=== PATIENT | male | born 1970 | race Caucasian/White ===

== ENCOUNTER 2021-12-05 18:29 | Emergency (ER) | payer BC, SELFPAY ==
[2021-12-05 18:24] VITALS: BP 155/92; PULSE 106; RESP 20; TEMP 36.7; O2SAT 97
--- NOTE | 2021-12-05 18:53 | PC.NURSE ---
ED MD AT BEDSIDE FOR EVALUATION
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
--- NOTE | 2021-12-05 19:00 | PC.NURSE ---
RADIOLOGY NOTIFIED OF CT ORDER
--- NOTE | 2021-12-05 19:04 | PC.NURSE ---
Pt gone to RAD
--- NOTE | 2021-12-05 19:06 | PC.NURSE ---
[address]
--- NOTE | 2021-12-05 19:15 | PC.NURSE ---
Pt back from RAD
[2021-12-05 19:59] LABS: Basophils # 0.1 K/mm3 (0-0.2); Basophils % 0.7 % (0.1-2.0); Eosinophils # 0.2 K/mm3 (0.0-0.4); Eosinophils % 1.3 % (0.1-12.0); Hematocrit 41.2 % (42.0-52.0); Hemoglobin 13.6 g/dL (14.1-18.0); Lymphocytes # 0.7 K/mm3 (0.7-4.5); Lymphocytes % 4.8 % (10-50); Mean Corpuscular Hemoglobin 31.2 pg (27.0-31.2); Mean Corpuscular Volume 94.4 fl (80-94); Mean Platelet Volume 7.6 fl (7.4-10.4); Monocytes # 0.2 K/mm3 (0.1-1.0); Neutrophils # 13.8 K/mm3 (1.8-7.8); Neutrophils % 92.3 % (37.0-80.0); Platelet Count 368 K/mm3 (142-424); Red Blood Count 4.37 M/mm3 (4.60-6.20); Red Cell Distribution Width 12.9 % (11.5-17.5); White Blood Count 14.9 K/mm3 (4.8-10.8)
[2021-12-05 20:01] LABS: MANUAL DIFFERENTIAL MANUAL DIFFERENTIAL (MANUAL DIFF)
[2021-12-05 20:15] LABS: Alanine Aminotransferase 52 U/L (12-78); Albumin Level 4.3 g/dl (3.5-5.0); Albumin/Globulin Ratio 0.9 (1.1-1.8); Alkaline Phosphatase 95 U/L (38-126); Anion Gap 12.8 mEq/L (5-15); Aspartate Amino Transferase 52 U/L (17-59); Bilirubin,Total 0.7 mg/dl (0.2-1.3); Blood Urea Nitrogen 11 mg/dl (9-20); Calcium 9.3 mg/dl (8.4-10.2); Carbon Dioxide 30 mmol/L (22.0-30.0); Chloride 102 mmol/L (98-107); Creatinine Clearance Estimated 17 mL/min (50-200); Estimated Glomerular Filt Rate 176 ml/min (>60); GFR (African American) 213 ML/MIN (>60); Globulin 4.7 g/dL (1.3-3.2); Glucose 128 mg/dl (74-100); Potassium 3.8 mmoL/L (3.5-5.1); Sodium 141 mmol/L (136-145)
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
[2021-12-05 20:49] LABS: Eosinophils % 1 % (0-3); Lymphocytes % 4 % (10-50); Monocytes % 1 % (2-9); Neutrophils % 93 % (42-76); Platelet Estimate Normal; RBC Morphology Normal; Total Cells Counted 100
[2021-12-05 20:54] VITALS: BP 147/71; PULSE 91; RESP 20; TEMP 36.7; O2SAT 97
== END 2021-12-05 20:55 | disposition home or self-care (01) ==
PROVIDERS: Emergency Provider Emergency Medicine; PCP Emergency Medicine
DX: S12.090S Other displaced fracture of first cervical vertebra, sequela (principal); S12.120 Other displaced dens fracture; Y00.XXXS Assault by blunt object, sequela
CPT/HCPCS: 70450; 72125; 80053; 85007; 85025; 96374; 99284

== ENCOUNTER 2022-09-05 00:48 | Emergency (ER) | payer BC, SELFPAY ==
[2022-09-05 01:00] VITALS: BP 117/85; PULSE 66; RESP 18; TEMP 36.6; O2SAT 100; BMI 25.1
[2022-09-05 01:01] VITALS: BP 130/92; PULSE 86; RESP 18; O2SAT 92
--- NOTE | 2022-09-05 01:05 | CT_ITS ---
PROCEDURE INFORMATION: Exam: CT Cervical Spine Without Contrast Exam date and time: 09/05/2022 1:19 AM Age: 52 years old Clinical indication: Neck pain TECHNIQUE: Imaging protocol: Computed tomography of the cervical spine without contrast. Radiation optimization: All CT scans at this facility use at least one of these dose optimization techniques: automated exposure control; mA and/or kV adjustment per patient size (includes targeted exams where dose is matched to clinical indication); or iterative reconstruction. REPORTING DATA: Count of CT and Cardiac NM exams in prior 12 months: This patient has received 2 known CTs and 0 known cardiac nuclear medicine studies in the 12 months prior to the current study. COMPARISON: CT CERVICAL SPINE WO CON 12/05/2021 7:06 PM FINDINGS: Bones/joints: There is an old ununited odontoid fracture. There is mild anterior subluxation of C1 and the odontoid fragment with respect to the remainder of C2. Significant misregistration artifact is noted at the C3 level. Acute fracture at this level can not be excluded based on this exam. Lungs: There are prominent subpleural bullous changes at the lung apices. Soft tissues: Unremarkable. Other findings: The study is degraded by motion artifact. IMPRESSION: 1. The study is significantly degraded by motion artifact. Significant misregistration artifact is noted at C3. A fracture at this level can not be excluded. 2. No definite acute fracture is evident. 3. There is straightening of the spine secondary to positioning or muscle spasm. 4. Old ununited odontoid fracture. There is mild anterior subluxation of C1 and the odontoid fragment with respect to C2. 5. Repeat imaging is recommended if there remains clinical concern for a cervical spine fracture.
--- NOTE | 2022-09-05 01:05 | XR_ITS ---
PROCEDURE INFORMATION: Exam: XR Chest Exam date and time: 09/05/2022 1:12 AM Age: 52 years old Clinical indication: Pain; Other: Neck; Additional info: Neck pain TECHNIQUE: Imaging protocol: Radiologic exam of the chest. Views: 1 view. COMPARISON: CT CERVICAL SPINE WO CON 12/05/2021 7:06 PM FINDINGS: Lungs: Unremarkable. No consolidation. Pleural spaces: Unremarkable. No pleural effusion. No pneumothorax. Heart/Mediastinum: Calcified right paratracheal lymph node is noted. Vasculature: Unremarkable. Bones/joints: Irregularity of the mid right clavicle suggests old healed fracture. IMPRESSION: No acute findings.
[2022-09-05 01:30] VITALS: BP 112/74; PULSE 90; RESP 20; O2SAT 95
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
[2022-09-05 04:15] VITALS: BP 112/74; PULSE 89; RESP 16; TEMP 36.6; O2SAT 98
== END 2022-09-05 04:24 | disposition home or self-care (01) ==
PROVIDERS: Emergency Provider Emergency Medicine
DX: T40.2X1A Poisoning by other opioids, accidental (unintentional), initial encounter (principal); L03.116 Cellulitis of left lower limb; F17.210 Nicotine dependence, cigarettes, uncomplicated
CPT/HCPCS: 71045; 72125; 96374; 99284

== ENCOUNTER 2024-07-04 17:14 | Emergency (ER) | payer MEDICAID, SELFPAY ==
[2024-07-04] VITALS (9 sets, daily range): BP systolic 118–127; BP diastolic 78–85; PULSE 70–81; RESP 16; TEMP 36.5–36.6; O2SAT 94–100; BMI 20.3
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
--- NOTE | 2024-07-04 18:06 | PC.NURSE ---
rounded on pt, no needs at this time.
[2024-07-04] MEDS: ACETAMINOPHEN 500MG TAB 1000 MG PO (18:44)
--- NOTE | 2024-07-04 18:56 | PC.NURSE ---
gave pt a sandwich for po challenge.
== END 2024-07-04 19:09 | disposition home or self-care (01) ==
PROVIDERS: Emergency Provider Emergency Medicine
DX: M25.531 Pain in right wrist (principal); M54.2 Cervicalgia; M54.9 Dorsalgia, unspecified; F17.210 Nicotine dependence, cigarettes, uncomplicated; V19.3XXA Pedal cyclist (driver) (passenger) injured in unspecified nontraffic accident, initial encounter; Y93.89 Activity, other specified; Y92.9 Unspecified place or not applicable
CPT/HCPCS: 70450; 72125; 73110; 73130; 99284

== ENCOUNTER 2024-08-31 12:11 | Emergency (ER) | payer MEDICAID, SELFPAY ==
[2024-08-31] VITALS (16 sets, daily range): BP systolic 92–112; BP diastolic 50–85; PULSE 73–89; RESP 12–17; TEMP 36.5–36.7; O2SAT 93–100; BMI 26.6
--- NOTE | 2024-08-31 12:13 | ECG_ITS ---
APPROVED REPORT Exam: Resting ECG HR:91 bpm ECG Measurements Heart Rate 91 AXES NH 139 P 76 QRSd 91 QRS 86 QT 346 T 62 QTc 395 Conclusion Sinus rhythm Nondiagnostic baseline Electronically signed by : CHRISTIANO SANCHEZ, 09/03/2024 19:36:30
--- NOTE | 2024-08-31 12:26 | XR_ITS ---
FINAL REPORT CLINICAL HISTORY: overddose eval for aspiration COMPARISON: 09/05/2022 FINDINGS: The heart size is normal. The mediastinum is normal. There is no focal infiltrate or edema. Mild chronic changes are noted at both lung bases. There are no pleural effusions. There is no pneumothorax. There is no osseous abnormality. IMPRESSION: Chronic changes without acute cardiopulmonary process Reviewed, Interpreted and Dictated by Trung Fish MD Transcribed by Felisa Bradford Authenticated and [facility]
[2024-08-31 12:35] LABS: Basophils # 0.1 K/mm3 (0-0.2); Basophils % 1.1 % (0.1-2.0); Eosinophils # 0.4 Kmm3 (0.0-0.4); Eosinophils % 6.3 % (0.1-12.0); Hematocrit 40.4 % (42.0-52.0); Hemoglobin 14.4 g/dL (14.1-18.0); Immature Granulocytes # 0.02 10^3uL; Immature Granulocytes % 0.3 %; Lymphocytes % 46.6 % (10-50); Mean Corpuscular HGB Conc 35.6 g/dL (31.8-35.4); Mean Corpuscular Hemoglobin 33.1 pg (27.0-31.2); Mean Corpuscular Volume 92.9 fl (80-94); Mean Platelet Volume 9.5 fl (7.4-10.4); Monocytes # 0.6 K/mm3 (0.1-1.0); Monocytes % 9.4 % (1.7-9.3); Neutrophils # 2.3 K/mm3 (1.8-7.8); Neutrophils % 36.3 % (37.0-80.0); Nucleated Red Blood Cells # 0 10^3/uL; Nucleated Red Blood Cells % 0 %; Platelet Count 295 K/mm3 (142-424); Red Blood Count 4.35 M/mm3 (4.60-6.20); Red Cell Distribution Width-SD 41.4 fL; White Blood Count 6.4 K/mm3 (4.8-10.8)
[2024-08-31 12:39] LABS: VBG HCO3 26.1 mmol/L (23-30); VBG Oxygen Saturation 99.2 % (50-70); VBG PH 7.26 mmol/L (7.31-7.41); VBG PO2 177.1 mmol/L (28-40); VBG Total CO2 27.9 mmol/L (23-27)
[2024-08-31 12:39] LABS: Albumin Level 4.1 g/dl (3.5-5.0); Chloride 104 mmol/L (98-107)
[2024-08-31 12:40] LABS: Potassium 4.5 mmoL/L (3.5-5.1); Sodium 138 mmol/L (136-145)
[2024-08-31 12:40] LABS: Lactate Venous 2.6 mmol/L (0.4-2.0)
[2024-08-31 12:42] LABS: Alanine Aminotransferase 48 U/L (12-78); Albumin/Globulin Ratio 1.2 (1.1-1.8); Alkaline Phosphatase 69 U/L (38-126); Anion Gap 10.5 mEq/L (5-15); Aspartate Amino Transferase 56 U/L (17-59); Bilirubin,Total 0.3 mg/dl (0.2-1.3); Blood Urea Nitrogen 17 mg/dl (9-20); Carbon Dioxide 28 mmol/L (22.0-30.0); Creatine Kinase 44 U/L (55-170); Creatinine Clearance Estimated 116 mL/min (50-200); Estimated Glomerular Filt Rate 101 ml/min (>60); GFR (African American) 122 ML/MIN (>60); Globulin 3.5 g/dL (1.3-3.2); Total Protein,Serum 7.6 g/dl (6.3-8.2)
[2024-08-31 12:43] LABS: Calcium 8.8 mg/dl (8.4-10.2); Glucose 197 mg/dl (74-100); Magnesium 1.6 mg/dl (1.6-2.3)
[2024-08-31] MEDS: 0.9 % SODIUM CHLORIDE 1000ML 1,000 ML 999 ML IV (12:43)
[2024-08-31 12:44] LABS: Activated Partial Thrombo Time 27.4 seconds (22.8-30.6)
--- NOTE | 2024-08-31 12:45 | ED_ITS ---
Discharge Plan Disposition Patient Disposition: Home, Self-Care Prescriptions Prescriptions: New naloxone 4 mg/actuation spray,non-aerosol 4 mg intranasal Q2M PRN (Reason: opioid overdose) Qty: 2 2RF Rx Instructions: spray 1 dose into ONE nostril; alternate nostrils w each dose until help arrives No Action tramadol 50 mg tablet 50 mg PO BID Qty: 60 1RF aripiprazole [Abilify] 2 mg tablet 2 mg PO DAILY Qty: 30 1RF Referrals Follow up/Referrals: Provider,Referral, [Primary Care Provider] - See instructions Activity Restrictions/Add. Instructions Additional Instructions/Restrictions: Call your family doctor to establish care for this visit to the emergency department and schedule follow-up within 48 hours to ensure improvement. If you have any worsening of your condition or any other concerning signs or symptoms, return to the emergency department or your primary care doctor for further evaluation. Discontinue using narcotic medications. library specialist can help through quitting. Clinical Impressions Clinical Impression: Opiate overdose, Fentanyl use disorder, severe, Opiate abuse, continuous, Situational depression Stand Alone Forms Stand Alone Forms: Work/School Release Instructions Patient Instructions: DI for Drug Overdose in Adults, Subjective Opioid Withdrawal Scale (SOWS) Print Language Print Language: Malay Discharge ED Provider: Toshia Hu General Adult HPI <Prasanth Baptiste MD - Last Filed: 08/31/24 14:52> General Chief complaint: Overdose Stated complaint: Possible Overdose Time Seen by Provider: 08/31/24 12:13 Mode of Arrival: EMS Source of Information: Patient and EMS Description of Symptoms (Recalled from ER Triage Doc. by RN): Pt transported to ED by EMS after being found in someone's yard unconscious. On EMS's arrival to scene the pt was given 4mg Narcan Intranasal and pt responded to medication. EMS found multiple syringes in the pts pocket. Pt told EMS that he did Fentanyl. Enroute to Hospital EMS started 0.9% Sodium Chloride IV. Vitals signs prior to arrival given by EMS was BP 105/74, glucose 207, and was placed on 4L. Pt reports he has chronic neck pain and has broken his 1st and 2nd vertebrae. Pt responded to name, place, month, and president. Pt reports that he injected Fentanyl and denies any other substance abuse. History of Present Illness HPI narrative: Please note that above description of symptoms, in this electronic medical record under categorization of recalled from ER triage doctor by RN are reflective of an initial nursing assessment, however, is not reflective of my full history and physical exam that was personally taken and clarified. Consequentially, this preceding description of symptoms, which may include the patient's categorized chief complaint in the EMR, do not reflect my personal clinical impression, and the ultimate description of history of present illness and patient stated complaints should be deferred to this section of the note. Unless stated otherwise or congruent with this section of the note, additional signs, symptoms, or incongruence should be interpreted as inaccurate with my clinical impression. Related Data Previous Rx's ?Medication ?Instructions ?Recorded aripiprazole 2 mg tablet (Abilify) 2 mg PO DAILY #30 tabs 08/04/22 tramadol 50 mg tablet 50 mg PO BID #60 tabs 08/04/22 naloxone 4 mg/actuation nasal spray 4 mg intranasal Q2M PRN opioid 08/31/24 overdose #2 ea Allergies Allergy/AdvReac Type Severity Reaction Status Date / Time No Known Allergies Allergy Verified 08/04/22 10:01 [facility] <Prasanth Baptiste MD - Last Filed: 08/31/24 14:52> [facility] Disclaimer: The information contained in this section may have been updated after the patient was seen, as this information can be updated by other users. Family History Other No significant family history Social History Smoking Status: Current every day smoker tobacco type: cigarettes packs per day: 1 alcohol intake: never substance use type: marijuana current occupational status: unemployed Travel in the last 8 weeks?: None Other Medical History Have you received the Flu Vaccine for this season: No Have you received the Pneumonia Vaccine: No <Prasanth Baptiste MD - Last Filed: 08/31/24 14:52> ROS Obtained: Yes All systems reviewed & no additional complaints except as documented Physical Exam <Prasanth Baptiste MD - Last Filed: 08/31/24 14:52> General General appearance: alert and anxious Head Head exam: atraumatic and normocephalic Eye Eye exam: Present normal appearance, PERRL (2 to 3 mm) and EOMI Neck Neck exam: Present normal inspection, full ROM and trachea midline Respiratory Respiratory exam: Present normal lung sounds bilaterally; Absent respiratory distress, wheezes, stridor, accessory muscle use or prolonged expiratory phase Cardiovascular Cardiovascular exam: Present normal rhythm, tachycardia and other (Pulses equal symmetric in upper and lower extremities) Abdominal Exam Abdominal exam: Present soft; Absent distention, tenderness, guarding, rebound, rigidity or pulsatile mass Extremities Exam Extremities exam: Absent edema Neurological Exam Neurological exam: Present alert, oriented X3 and CN II-XII intact; Absent motor sensory deficit Skin Skin exam: Present warm, dry and diaphoresis; Absent erythema Medical Decision Making <Prasanth Baptiste MD - Last Filed: 08/31/24 14:52> Medical Records Medical records reviewed: Yes I reviewed the patient's medical records. Screening: Per USPSTF and CDC recommendations, given the prevalence of disease in our region, it is our hospital?s policy to screen for HIV and viral Hepatitis for all patients aged 18 and over and those with ongoing risk factors. Noah Inquiry Pt receiving controlled substance: No Noah was queried for this patient: No Vital Signs: 08/31/24 12:17 08/31/24 12:30 08/31/24 12:42 Temperature 97.7 F 97.7 F Temperature Source Oral Oral Pulse Rate 85 89 Pulse Rate [Right] 89 Respiratory Rate 14 15 14 Blood Pressure 99/74 L 99/66 L Blood Pressure [Right Arm] 99/66 L Blood Pressure Mean [Right Arm] 77 Blood Pressure Source Automatic Cuff Blood Pressure Source [Right Arm] Automatic Cuff Blood Pressure Position Supine Blood Pressure Position [Right Arm] Supine 02 Sat by Pulse Oximetry 97 100 97 Oxygen Delivery Method Room Air Room Air 08/31/24 12:42 08/31/24 13:00 08/31/24 13:30 Temperature Temperature Source Pulse Rate 74 77 Pulse Rate [Right] Respiratory Rate 17 14 12 Blood Pressure 99/74 L 100/70 L 106/73 L Blood Pressure [Right Arm] Blood Pressure Mean [Right Arm] Blood Pressure Source Blood Pressure Source [Right Arm] Blood Pressure Position Blood Pressure Position [Right Arm] 02 Sat by Pulse Oximetry 96 96 Oxygen Delivery Method Room Air Room Air 08/31/24 13:39 08/31/24 14:00 08/31/24 14:30 Temperature 98.1 F Temperature Source Pulse Rate 88 74 73 Pulse Rate [Right] Respiratory Rate 13 12 12 Blood Pressure 106/73 L 100/55 L 93/58 L Blood Pressure [Right Arm] Blood Pressure Mean [Right Arm] Blood Pressure Source Blood Pressure Source [Right Arm] Blood Pressure Position Blood Pressure Position [Right Arm] 02 Sat by Pulse Oximetry 96 97 Oxygen Delivery Method Room Air Room Air 08/31/24 15:01 08/31/24 15:30 08/31/24 16:00 Temperature Temperature Source Pulse Rate 87 85 Pulse Rate [Right] Respiratory Rate 17 13 13 Blood Pressure 95/52 L 96/64 L 99/68 L Blood Pressure [Right Arm] Blood Pressure Mean [Right Arm] Blood Pressure Source Blood Pressure Source [Right Arm] Blood Pressure Position Blood Pressure Position [Right Arm] 02 Sat by Pulse Oximetry 97 96 Oxygen Delivery Method Room Air Room Air 08/31/24 16:30 08/31/24 17:00 08/31/24 17:30 Temperature Temperature Source Pulse Rate 79 79 78 Pulse Rate [Right] Respiratory Rate 13 17 13 Blood Pressure 96/50 L 92/62 L 112/85 Blood Pressure [Right Arm] Blood Pressure Mean [Right Arm] Blood Pressure Source Blood Pressure Source [Right Arm] Blood Pressure Position Blood Pressure Position [Right Arm] 02 Sat by Pulse Oximetry 100 100 97 Oxygen Delivery Method Room Air Room Air Room Air 08/31/24 18:00 08/31/24 18:30 Temperature Temperature Source Pulse Rate 73 Pulse Rate [Right] Respiratory Rate 14 14 Blood Pressure 102/57 L 104/75 L Blood Pressure [Right Arm] Blood Pressure Mean [Right Arm] Blood Pressure Source Blood Pressure Source [Right Arm] Blood Pressure Position Blood Pressure Position [Right Arm] 02 Sat by Pulse Oximetry 97 93 L Oxygen Delivery Method Room Air Room Air Lab Data Lab Results 08/31/24 12:13: WBC 6.4, RBC 4.35 L, Hgb 14.4, Hct 40.4 L, MCV 92.9, MCH 33.1 H, MCHC 35.6 H, RDW 12.0, Plt Count 295, MPV 9.5, Neut % (Auto) 36.3 L, Lymph % (Auto) 46.6, [place] % (Auto) 9.4 H, Eos % (Auto) 6.3, Baso % (Auto) 1.1, Neut # (Auto) 2.3, Lymph # (Auto) 3.0, [place] # (Auto) 0.6, Eos # (Auto) 0.4, Baso # (Auto) 0.1, PT 12.2, INR 1.10, APTT 27.4, Sodium 138, Potassium 4.5, Chloride 104, Carbon Dioxide 28, Anion Gap 10.5, BUN 17, Creatinine 0.80, Estimated Creat Clear 116, Estimated GFR 101, Est GFR ( Amer) 122, Glucose 197 H, Calcium 8.8, Magnesium 1.6, Total Bilirubin 0.3, AST 56, ALT 48, Alkaline Phosphatase 69, Total Creatine Kinase 44 L, Total Protein 7.6, Albumin 4.1, Globulin 3.5 H, Albumin/Globulin Ratio 1.2, Salicylates < 1.0 L, Acetaminophen < 10 L, Plasma/Serum Alcohol < 10, HCV Ab RUDY w/Rflx PCR Qn Reactive, HIV Ag/Ab Combo Qual Negative 08/31/24 12:27: VBG pH 7.26 L, VBG pCO2 59.0 H, VBG pO2 177.1 H, VBG HCO3 26.1, VBG Total CO2 27.9 H, VBG O2 Saturation 99.2 H, VBG Base Excess -1.0, VBG Lactic Acid 2.6 H 08/31/24 17:39: Urine Opiates Screen Negative, Urine Methadone Screen Negative, Ur Barbituates Screen Negative, Ur Phencyclidine Scrn Negative, Ur Amphetamines Screen Positive H, U Benzodiazepines Scrn Negative, Urine Cocaine Screen Negative, U Marijuana (THC) Screen Negative 08/31/24 12:13 08/31/24 12:13 Orders (Tests/Meds): ED MEDICATIONS Discontinued Medications Generic Name Dose Route Start Last Admin Trade Name Venancioq PRN Reason Stop Dose Admin Acetaminophen 1,000 mg 08/31/24 12:47 08/31/24 12:50 Acetaminophen 1,000mg/100ml Vial IV 08/31/24 12:48 1,000 mg ONCE ONE Administration Sodium Chloride 1,000 mls @ 999 mls/hr 08/31/24 12:26 08/31/24 12:43 Sod Chlor 0.9% 1000ml Bag IV 08/31/24 13:26 999 mls/hr .Q1H1M ONE Administration Ketorolac Tromethamine 15 mg 08/31/24 12:47 08/31/24 12:50 Ketorolac 30mg/Ml Vial IV 08/31/24 12:48 15 mg ONCE ONE Administration Lidocaine 1 each 08/31/24 17:38 08/31/24 17:58 Lidocaine 5% Transdermal Patch TD 08/31/24 17:39 1 each ONCE ONE Administration Methocarbamol 1,000 mg 08/31/24 17:39 08/31/24 17:58 Methocarbamol 500mg Tablet PO 08/31/24 17:40 1,000 mg ONCE ONE Administration Naloxone HCl 4 mg 08/31/24 20:53 08/31/24 20:54 Naloxone Hcl 4mg [place] 08/31/24 20:54 4 mg ONCE ONE Administration ORDERS Category Date Time Status Consult Senior Sales Administrator [CONS] Routine Cons 08/31/24 12:39 Active Consult to Case Management [CONS] Routine Cons 08/31/24 14:02 Active XR chest portable Stat Exams 08/31/24 12:26 Completed Acetaminophen Stat Lab 08/31/24 12:13 Completed CK [Creatine Kinase] Stat Lab 08/31/24 12:13 Completed Complete Blood Count Auto Diff Stat Lab 08/31/24 12:13 Completed Comprehensive Metabolic Panel Stat Lab 08/31/24 12:13 Completed Drug Screen,Urine Stat Lab 08/31/24 17:39 Completed Ethyl Alcohol Stat Lab 08/31/24 12:13 Completed HCV RNA PCR, Quant Stat Lab 08/31/24 12:13 Received HIV Combo Stat Lab 08/31/24 12:13 Completed Hepatitis C Ab Qual. W/ RFX Stat Lab 08/31/24 12:13 Completed Magnesium Stat Lab 08/31/24 12:13 Completed PT INR [Prothrombin Time INR] Stat Lab 08/31/24 12:13 Completed PTT [Activated Partial Thrombo Time] Stat Lab 08/31/24 12:13 Completed Salicylate Stat Lab 08/31/24 12:13 Completed Venous Blood Gas Stat RT 08/31/24 12:27 Completed Medical Decision Narrative: 54-year-old male history of polysubstance abuse presenting with overdose. Patient was with others known to him. Overdosed on fentanyl IV. EMS was contacted and fire arrived first. Fire administered intranasal Narcan with response. EMS was contacted and arrived. Glucose right around 200 for them, brought to the emergency department after obtaining IV and given some fluids. On arrival, patient states that he is having neck and back pain, but states this is not new since fractures in the past. No shortness of breath, nausea or vomiting, but has bodyaches. Denies any trauma does not currently have any symptoms. History was obtained via conversation with patient, EMS. On arrival, patient hemodynamically stable, alert, oriented x 3, appropriate, GCS 15, moving all extremities spontaneously, pupils equal and reactive to light. Full physical exam performed and significant for patient who appears to be uncomfortable withdrawing. Pupils are 2 to 3 mm, he is diaphoretic and laying on his side trembling. Answering questions, but he is only alert and oriented to person, time, and situation, not place. Differential includes intoxication, withdrawal, metabolic abnormality, endocrinologic abnormality, psychiatric break, among others. Patient placed on continuous cardiac monitoring and continuous pulse ox with initial blood pressure 99/74, heart rate 89, saturation 97% on room air. Independent interpretation of EKG shows sinus rhythm 91 bpm with PA 139, QRS 91, QTc 395. No acute ischemic changes yeah. Patient was given fluids, Toradol, acetaminophen for symptomatic management and correction of underlying abnormalities. Workup independently interpreted and significant for nonactionable CBC or chemistry. VBG with mild respiratory acidosis likely secondary to overdose syndrome.. On independent interpretation of imaging, no acute cardiopulmonary airspace disease. He does have mild by lateral hilar fullness, but no consolidative airspace disease. See radiology read for full review of final results. Reevaluation, meds seem to help with neck pain. Given patient presentation, workup, history, this most likely represents acute overdose uncomplicated. Because patient at baseline without signs or symptoms of clinical decompensation, deemed appropriate for discharge. I discussed this with patient, he began expressing suicidal ideation if he was sent home right now. When further discussing because of this, patient states that he has nowhere to go, no access to medication, chronic pain. I feel this is situational suicidal ideation. After further conversation, patient calm down quite a bit and agreeable to other options, if he has option for living, medications including probable methadone. Case management was contacted and case was discussed. Prior to disposition, care handed off to oncoming physician Youth Worker disclaimer Much of this encounter note is an electronic manager multimedia spoken language to printed text. Electronic manager multimedia of the spoken language may permit errors. Although I have reviewed the note, some errors may still exist. <Toshia Hu, DO - Last Filed: 09/01/24 00:36> Vital Signs: 08/31/24 12:17 08/31/24 12:30 08/31/24 12:42 Temperature 97.7 F 97.7 F Temperature Source Oral Oral Pulse Rate 85 89 Pulse Rate [Right] 89 Respiratory Rate 14 15 14 Blood Pressure 99/74 L 99/66 L Blood Pressure [Right Arm] 99/66 L Blood Pressure Mean [Right Arm] 77 Blood Pressure Source Automatic Cuff Blood Pressure Source [Right Arm] Automatic Cuff Blood Pressure Position Supine Blood Pressure Position [Right Arm] Supine 02 Sat by Pulse Oximetry 97 100 97 Oxygen Delivery Method Room Air Room Air 08/31/24 12:42 08/31/24 13:00 08/31/24 13:30 Temperature Temperature Source Pulse Rate 74 77 Pulse Rate [Right] Respiratory Rate 17 14 12 Blood Pressure 99/74 L 100/70 L 106/73 L Blood Pressure [Right Arm] Blood Pressure Mean [Right Arm] Blood Pressure Source Blood Pressure Source [Right Arm] Blood Pressure Position Blood Pressure Position [Right Arm] 02 Sat by Pulse Oximetry 96 96 Oxygen Delivery Method Room Air Room Air 08/31/24 13:39 08/31/24 14:00 08/31/24 14:30 Temperature 98.1 F Temperature Source Pulse Rate 88 74 73 Pulse Rate [Right] Respiratory Rate 13 12 12 Blood Pressure 106/73 L 100/55 L 93/58 L Blood Pressure [Right Arm] Blood Pressure Mean [Right Arm] Blood Pressure Source Blood Pressure Source [Right Arm] Blood Pressure Position Blood Pressure Position [Right Arm] 02 Sat by Pulse Oximetry 96 97 Oxygen Delivery Method Room Air Room Air 08/31/24 15:01 08/31/24 15:30 08/31/24 16:00 Temperature Temperature Source Pulse Rate 87 85 Pulse Rate [Right] Respiratory Rate 17 13 13 Blood Pressure 95/52 L 96/64 L 99/68 L Blood Pressure [Right Arm] Blood Pressure Mean [Right Arm] Blood Pressure Source Blood Pressure Source [Right Arm] Blood Pressure Position Blood Pressure Position [Right Arm] 02 Sat by Pulse Oximetry 97 96 Oxygen Delivery Method Room Air Room Air 08/31/24 16:30 08/31/24 17:00 08/31/24 17:30 Temperature Temperature Source Pulse Rate 79 79 78 Pulse Rate [Right] Respiratory Rate 13 17 13 Blood Pressure 96/50 L 92/62 L 112/85 Blood Pressure [Right Arm] Blood Pressure Mean [Right Arm] Blood Pressure Source Blood Pressure Source [Right Arm] Blood Pressure Position Blood Pressure Position [Right Arm] 02 Sat by Pulse Oximetry 100 100 97 Oxygen Delivery Method Room Air Room Air Room Air 08/31/24 18:00 08/31/24 18:30 Temperature Temperature Source Pulse Rate 73 Pulse Rate [Right] Respiratory Rate 14 14 Blood Pressure 102/57 L 104/75 L Blood Pressure [Right Arm] Blood Pressure Mean [Right Arm] Blood Pressure Source Blood Pressure Source [Right Arm] Blood Pressure Position Blood Pressure Position [Right Arm] 02 Sat by Pulse Oximetry 97 93 L Oxygen Delivery Method Room Air Room Air Lab Data Lab Results 08/31/24 12:13: WBC 6.4, RBC 4.35 L, Hgb 14.4, Hct 40.4 L, MCV 92.9, MCH 33.1 H, MCHC 35.6 H, RDW 12.0, Plt Count 295, MPV 9.5, Neut % (Auto) 36.3 L, Lymph % (Auto) 46.6, [place] % (Auto) 9.4 H, Eos % (Auto) 6.3, Baso % (Auto) 1.1, Neut # (Auto) 2.3, Lymph # (Auto) 3.0, [place] # (Auto) 0.6, Eos # (Auto) 0.4, Baso # (Auto) 0.1, PT 12.2, INR 1.10, APTT 27.4, Sodium 138, Potassium 4.5, Chloride 104, Carbon Dioxide 28, Anion Gap 10.5, BUN 17, Creatinine 0.80, Estimated Creat Clear 116, Estimated GFR 101, Est GFR ( Amer) 122, Glucose 197 H, Calcium 8.8, Magnesium 1.6, Total Bilirubin 0.3, AST 56, ALT 48, Alkaline Phosphatase 69, Total Creatine Kinase 44 L, Total Protein 7.6, Albumin 4.1, Globulin 3.5 H, Albumin/Globulin Ratio 1.2, Salicylates < 1.0 L, Acetaminophen < 10 L, Plasma/Serum Alcohol < 10, HCV Ab RUDY w/Rflx PCR Qn Reactive, HIV Ag/Ab Combo Qual Negative 08/31/24 12:27: VBG pH 7.26 L, VBG pCO2 59.0 H, VBG pO2 177.1 H, VBG HCO3 26.1, VBG Total CO2 27.9 H, VBG O2 Saturation 99.2 H, VBG Base Excess -1.0, VBG Lactic Acid 2.6 H 08/31/24 17:39: Urine Opiates Screen Negative, Urine Methadone Screen Negative, Ur Barbituates Screen Negative, Ur Phencyclidine Scrn Negative, Ur Amphetamines Screen Positive H, U Benzodiazepines Scrn Negative, Urine Cocaine Screen Negative, U Marijuana (THC) Screen Negative Orders (Tests/Meds): ED MEDICATIONS Discontinued Medications Generic Name Dose Route Start Last Admin Trade Name Freq PRN Reason Stop Dose Admin Acetaminophen 1,000 mg 08/31/24 12:47 08/31/24 12:50 Acetaminophen 1,000mg/100ml Vial IV 08/31/24 12:48 1,000 mg ONCE ONE Administration Sodium Chloride 1,000 mls @ 999 mls/hr 08/31/24 12:26 08/31/24 12:43 Sod Chlor 0.9% 1000ml Bag IV 08/31/24 13:26 999 mls/hr .Q1H1M ONE Administration Ketorolac Tromethamine 15 mg 08/31/24 12:47 08/31/24 12:50 Ketorolac 30mg/Ml Vial IV 08/31/24 12:48 15 mg ONCE ONE Administration Lidocaine 1 each 08/31/24 17:38 08/31/24 17:58 Lidocaine 5% Transdermal Patch TD 08/31/24 17:39 1 each ONCE ONE Administration Methocarbamol 1,000 mg 08/31/24 17:39 08/31/24 17:58 Methocarbamol 500mg Tablet PO 08/31/24 17:40 1,000 mg ONCE ONE Administration Naloxone HCl 4 mg 08/31/24 20:53 08/31/24 20:54 Naloxone Hcl 4mg [place] 08/31/24 20:54 4 mg ONCE ONE Administration ORDERS Category Date Time Status Consult Senior Sales Administrator [CONS] Routine Cons 08/31/24 12:39 Active Consult to Case Management [CONS] Routine Cons 08/31/24 14:02 Active XR chest portable Stat Exams 08/31/24 12:26 Completed Acetaminophen Stat Lab 08/31/24 12:13 Completed CK [Creatine Kinase] Stat Lab 08/31/24 12:13 Completed Complete Blood Count Auto Diff Stat Lab 08/31/24 12:13 Completed Comprehensive Metabolic Panel Stat Lab 08/31/24 12:13 Completed Drug Screen,Urine Stat Lab 08/31/24 17:39 Completed Ethyl Alcohol Stat Lab 08/31/24 12:13 Completed HCV RNA PCR, Quant Stat Lab 08/31/24 12:13 Received HIV Combo Stat Lab 08/31/24 12:13 Completed Hepatitis C Ab Qual. W/ RFX Stat Lab 08/31/24 12:13 Completed Magnesium Stat Lab 08/31/24 12:13 Completed PT INR [Prothrombin Time INR] Stat Lab 08/31/24 12:13 Completed PTT [Activated Partial Thrombo Time] Stat Lab 08/31/24 12:13 Completed Salicylate Stat Lab 08/31/24 12:13 Completed Venous Blood Gas Stat RT 08/31/24 12:27 Completed Medical Decision Narrative: 54-year-old male history of polysubstance abuse presenting with overdose. Patient was with others known to him. Overdosed on fentanyl IV. EMS was contacted and fire arrived first. Fire administered intranasal Narcan with response. EMS was contacted and arrived. Glucose right around 200 for them, brought to the emergency department after obtaining IV and given some fluids. On arrival, patient states that he is having neck and back pain, but states this is not new since fractures in the past. No shortness of breath, nausea or vomiting, but has bodyaches. Denies any trauma does not currently have any symptoms. History was obtained via conversation with patient, EMS. On arrival, patient hemodynamically stable, alert, oriented x 3, appropriate, GCS 15, moving all extremities spontaneously, pupils equal and reactive to light. Full physical exam performed and significant for patient who appears to be uncomfortable withdrawing. Pupils are 2 to 3 mm, he is diaphoretic and laying on his side trembling. Answering questions, but he is only alert and oriented to person, time, and situation, not place. Differential includes intoxication, withdrawal, metabolic abnormality, endocrinologic abnormality, psychiatric break, among others. Patient placed on continuous cardiac monitoring and continuous pulse ox with initial blood pressure 99/74, heart rate 89, saturation 97% on room air. Independent interpretation of EKG shows sinus rhythm 91 bpm with PA 139, QRS 91, QTc 395. No acute ischemic changes yeah. Patient was given fluids, Toradol, acetaminophen for symptomatic management and correction of underlying abnormalities. Workup independently interpreted and significant for nonactionable CBC or chemistry. VBG with mild respiratory acidosis likely secondary to overdose syndrome.. On independent interpretation of imaging, no acute cardiopulmonary airspace disease. He does have mild by lateral hilar fullness, but no consolidative airspace disease. See radiology read for full review of final results. Reevaluation, meds seem to help with neck pain. Given patient presentation, workup, history, this most likely represents acute overdose uncomplicated. Because patient at baseline without signs or symptoms of clinical decompensation, deemed appropriate for discharge. I discussed this with patient, he began expressing suicidal ideation if he was sent home right now. When further discussing because of this, patient states that he has nowhere to go, no access to medication, chronic pain. I feel this is situational suicidal ideation. After further conversation, patient calm down quite a bit and agreeable to other options, if he has option for living, medications including probable methadone. Case management was contacted and case was discussed. Prior to disposition, care handed off to oncoming physician Youth Worker disclaimer Much of this encounter note is an electronic manager multimedia spoken language to printed text. Electronic manager multimedia of the spoken language may permit errors. Although I have reviewed the note, some errors may still exist. DO Fritz: I assumed care of the patient at 1500 at time of departure of the previous provider, at which point I put the patient in ED observation status pending care management disposition. Care management offered the patient placement in homeless shelters versus treating versus [place] versus other facilities, however he declined stating he was not interested in this. We then tried to talk to him about potential rehab facilities, however he was not interested in this either. He made comments that if he developed a severe pain as he had had after initially getting Narcan, he would not want to live anymore, but he is not actively suicidal. He has no plan nor has he had thoughts of suicide outside of the setting of severe pain. He states that when the pain gets that bad, he just does not want to live. I feel he likely has passive situational suicidality. We had the patient speak with [facility], who deemed that he was not appropriate for admission there. We then again offered him resources for homeless shelters, however he said he was not interested. At this time, patient has been medically clear he is alert, conversational, neurologically intact with no respiratory depression, did not require Narcan again in the emergency department. Given this, it is felt he is appropriate for discharge. He was provided a Narcan dispense kit here prior to discharge, which she did not take with him. I did go ahead and send in Narcan prescription in as well. We tried to help him with numerous resources, however he was not agreeable. He was discharged to his own care at 20 5:15 hours and 15 minutes in ED observation status. Critical Care <Prasanth Baptiste MD - Last Filed: 08/31/24 14:52> Critical Care Time Critical Care Time: No <Toshia Hu DO - Last Filed: 09/01/24 00:36> Critical Care Time Critical Care Time: Yes Attestation: On 08/31/24, the high probability of a clinically significant, sudden or life threatening deterioration of the following system(s) required my full and direct attention, intervention and personal management. The time I documented below is in addition to time spent performing reported procedures but includes the following listed in this critical care notation. Total Time Total Critical Care Time: 35
[2024-08-31 12:47] LABS: Prothrombin Time 12.2 seconds (10.1-12.5)
[2024-08-31] MEDS: KETOROLAC 30MG/ML VIAL 15 MG IV (12:50)
[2024-08-31] MEDS: ACETAMINOPHEN 1,000MG/100ML VIAL 1000 MG IV (12:50)
--- NOTE | 2024-08-31 13:42 | PC.NURSE ---
Graciela is at the bedside with the pt.
--- NOTE | 2024-08-31 13:59 | PC.NURSE ---
I talked to Beba in case management about the pt having no ride to a clinic for methadone usage for pain, pcp office or pain management. Pts insurance covers [facility] 6 days a week. When I went back to sleep with him he states he has no where to live. Pt states [place] [address]. I called case management back, they are going to look into a facility such as [facility].
[2024-08-31 14:31] LABS: HIV Combo NEGATIVE (Negative)
[2024-08-31 14:39] LABS: Hepatitis C Ab Qual. W/ RFX REACTIVE (Negative)
--- NOTE | 2024-08-31 15:28 | SW/DCPLANNER ---
Addendum entered by Cady Wood 08/31/24 16:03: Daisha Souza received referral and currently reviewing. Daisha Souza will follow up w/ ED once information is reviewed. I have updated Camilo in ED. Original Note: I received a consult on this patient regarding no home no support. Patient came into ED for an overdose. PS at bedside speaking w/ patient during my visit. Patient only answers certain questions then will quickly fall back asleep. Patient voiced that [place]. I spoke w/ patient regarding inpatient rehab and patient voiced he does not need inpatient rehab and is not interested. Due to being homeless I discussed options of homeless shelters. Patient voiced that he not interested in a homeless group home at this time. I discussed w/ patient the option of [facility] and patient stated that he does not have an income and is not interested. After discussion between myself, PS and patient he is agreeable for information to be faxed to Daisha Souza. I will follow up w/ Daisha Souza once information is reviewed.
[2024-08-31 16:41] LABS: Reflex Lactic Add Lactic Reflex
--- NOTE | 2024-08-31 16:41 | PC.NURSE ---
Pt is speaking with Swati hutchinson intake nurse at [facility].
--- NOTE | 2024-08-31 16:47 | PEERSUPPORT ---
Peer Support Note Patient Information Patient Information: DOS: 08/31/2024 ? Reason: OUD (fentanyl, IV) ? Ps ED Consult ? Previous MAT/MOUD: Methadone ? Current MAT/MOUD: [facility]/MAT ?Suboxone 8mg/naloxone 2 mg, 2x per day ? Desire for MAT/MOUD: Pt is interested in MOUD; [facility] in [place], [place]. Methadone for opiate use disorder. Pt does not have secure housing or transportation at this time. MARYJANE Monahan.- To assess and offer resources to meet needs of housing and transportation. ? Support System: None ? Legal Issues: Recent arrest for criminal allegations relating to drugs. ? Potential Barriers: -High Risk of overdose -Unsecure housing; [place] [address] -No family -Access to drugs through lifestyle and association -Uncontrolled pain; pt self-medicating -Untreated mental and emotional health ? Insurance: ? Harm reduction: -Connection to [facility] -Education on OUD -Treatment referrals/resources -Narcan at discharge if pt is not approved for [facility] ? Motivation for Change: Pt adamant that he does not have an addiction problem, refusing inpatient treatment for OUD. Stated he self-medicates his pain. He says he does not want to live with this pain and cannot keep living with this pain. He stated that if he does leave the hospital he will kill himself. Pt has been on methadone before he says he would go to a clinic but has no transportation for daily dosing. ? Ps notified charge nurse Tammi Erickson and Prasanth Collins ? Swe[employer]band Decorating Machine Operator Ruthie Wood, assessed and sent information to [facility] at [facility]. ? Awaiting for approval to admission, Pt is willing to commit for medical stabilization. ? Pt is receptive to ps, and agrees to accepting contact information for ongoing recovery focused support. ? Plan of Action: -[facility] to approve admission -Ps will follow up according to disposition from ED.
--- NOTE | 2024-08-31 16:51 | PC.NURSE ---
I went with bedside to talk with the pt after the intake nurse called back stating he did not verbalize any SI. She is keeping the case open if he is willing to talk. The pt agreed to speak with her again after talking to
--- NOTE | 2024-08-31 16:57 | PC.NURSE ---
The intake nurse called back from [facility]. She states there are now three other patients in front of him. She will call back.
[2024-08-31 17:14] LABS: Ethyl Alcohol < 10 mg/dl (0-10); Salicylate < 1.0 mg/dL (2.0-20.0)
[2024-08-31 17:15] LABS: Acetaminophen < 10 ug/ml (10-30)
--- NOTE | 2024-08-31 17:26 | PC.NURSE ---
Salomon intake nurse from [facility] called to speak with the pt but states he needs the UDS before they will speak with them.
[2024-08-31] MEDS: LIDOCAINE 5% TRANSDERMAL PATCH 1 EACH TD (17:58)
[2024-08-31] MEDS: METHOCARBAMOL 500MG TABLET 1000 MG PO (17:58)
[2024-08-31 18:12] LABS: Barbiturates Screen,Urine Negative ng/ml (<200)
[2024-08-31 18:13] LABS: Benzodiazepines Screen,Urine Negative ng/ml (<200)
[2024-08-31 18:14] LABS: Methadone Screen,Urine Negative ng/ml (<300)
[2024-08-31 18:15] LABS: Cannabinoid Screen,Urine Negative ng/ml (<50); Cocaine Screen,Urine Negative ng/ml (<300)
[2024-08-31 18:16] LABS: Opiate Screen,Urine Negative ng/ml (<300); Phencyclidine Screen,Urine Negative ng/ml (<25)
--- NOTE | 2024-08-31 18:25 | PC.NURSE ---
jose with [facility] called for status update on pt. informed her that we are waiting for urine drug screen to come back and we will fax paperwork over to them when it is completed.
[2024-08-31 19:05] LABS: Amphetamine/Metha Screen,Urine Positive ng/ml (<1000)
--- NOTE | 2024-08-31 19:42 | PC.NURSE ---
[facility] rep on the phone at this time speaking with patient.
--- NOTE | 2024-08-31 20:16 | PC.NURSE ---
[facility] calls to report referral to [facility]
[2024-08-31] MEDS: NALOXONE HCL 4MG SPRAY 4 MG NS (20:54)
== END 2024-08-31 21:01 | disposition home or self-care (01) ==
PROVIDERS: Emergency Medicine; Emergency Provider Emergency Medicine
DX: T40.411A Poisoning by fentanyl or fentanyl analogs, accidental (unintentional), initial encounter (principal); F11.129 Opioid abuse with intoxication, unspecified; R45.851 Suicidal ideations; F32.89 Other specified depressive episodes; Z59.00 Homelessness unspecified
CPT/HCPCS: 71045; 80053; 80307; 80320; 80329; 82550; 82803; 83735; 85025; 85610; 85730; 86803; 87389; 87522; 93005; 96361; 96374; 96375; 99291; J0131; J1885; J7030

== ENCOUNTER 2024-11-03 12:42 | Emergency (ER) | payer MEDICAID, SELFPAY ==
--- OUTSIDE RECORDS SUMMARY | 2024-11-03 12:51 | XMS_ITS | Clinical Summary ---
Author Organization Healthcare Address [address] [place] [address] Care Team Providers Care Social Welfare Research Worker Name Role Phone Dionisio Thompson MD Primary Care Provider + [phone] Social History Tobacco Use Types Packs/Day Years Used Date Smoking Tobacco: Never Assessed Sex and Gender Information Value Date Recorded Sex Assigned at Not on file Legal Sex Male 8:13 PM EDT Gender Identity Not on file Sexual Orientation Not on file Plan of Treatment Health Maintenance Due Date Last Done Comments [facility]-Depression Screening 1971 [facility]-HIV Screening 1971 [facility]-Hepatitis C Screening 1971 [facility]-/Child/Adol SDOH Screenings 1971 [facility]- SDOH Screenings 1989 [facility]-Adult SDOH Screenings 1989 [facility]-DTaP,Tdap,and Td Vaccine s (1 - Tdap) 1990 [facility]-Hepatitis B Vaccines (1 of 3 - 19+ 3-dose series) 1990 CT Colonography 2016 Colonoscopy 2016 FIT-DNA 2016 FIT 2016 FOBT 2016 Sigmoidoscopy 2016 [facility]-Colorectal Cancer Screening 2016 [facility]-Pneumococcal Vaccine: 50 + Years (1 of 1 - PCV) 2021 [facility]-Zoster Vaccines (1 of 2) 2021 [id number] Vaccine (3 - 2023- season) 2023 10/03/2020, 08/29/2020 [facility]-Influenza Vaccine (#1) 2024 HPV Vaccines Aged Out No longer eligi ble based on patient's age to complete this topic [facility]-HIB Vaccines Aged Out No longer e ligible based on patient's age to complete this topic [facility]-Hepatitis A Vaccines Aged Out No longer eligible based on patient's age to complete this topic [facility]-IPV Vaccines Aged Out No longer e ligible based on patient's age to complete this topic [facility]-Rotavirus Vaccines Aged Out No lo nger eligible based on patient's age to complete this topic Care Teams Social Welfare Research Worker Relationship Specialty Start Date End Date Dionisio Thompson MD [address] [place] [address] PCP - General 08/30/20
[2024-11-03 12:56] VITALS: BP 119/73; PULSE 87; RESP 14; TEMP 37.2; O2SAT 98; BMI 21.8
--- NOTE | 2024-11-03 13:04 | HMH.EDGENADL ---
Discharge Plan Disposition Patient Disposition: Home, Self-Care Condition: Good Prescriptions Prescriptions: New clindamycin HCl [Cleocin HCl] 300 mg capsule 300 mg PO Q8H 7 Days Qty: 21 0RF No Action tramadol 50 mg tablet 50 mg PO BID Qty: 60 1RF aripiprazole [Abilify] 2 mg tablet 2 mg PO DAILY Qty: 30 1RF naloxone 4 mg/actuation spray,non-aerosol 4 mg intranasal Q2M PRN (Reason: opioid overdose) Qty: 2 2RF Rx Instructions: spray 1 dose into ONE nostril; alternate nostrils w each dose until help arrives Referrals Follow up/Referrals: Provider,Referral, MD [Primary Care Provider, Medical] - See instructions Activity Restrictions/Add. Instructions Additional Instructions/Restrictions: Keep area clean dry and covered. Wash with soap and water 2-3 times a day. See your primary care provider in follow-up. Return to ER with any other problems or concerns. Clinical Impressions Clinical Impression: Abscess Instructions Patient Instructions: DI for Skin Abscess Print Language Print Language: Amharic Discharge ED Provider: Abimael Borges General Adult HPI <Sade Hernandez (ED), [employer] - Last Filed: 11/03/24 18:53> General Chief complaint: Extremity Injury, Upper Stated complaint: skin abscess R forearm Time Seen by Provider: 11/03/24 12:52 Mode of Arrival: Ambulatory Source of Information: Patient Description of Symptoms (Recalled from ER Triage Doc. by RN): Pt states he thinks he may have gotten bit by a spider to right forearm on 10/31/2024. Pt reports when he got up this morning his arm was worse, went to [facility] and was told he may need to get arm checked out at ER. History of Present Illness HPI narrative: 54-year-old male presents to the ED today with complaint of being bit by a spider on his right forearm on Wednesday. He got up this morning and felt like it was worse he went to the [facility] and was told that he needs to get his arm checked out in the ER. He has no fevers, chills, nausea or vomiting. No other symptoms at this time. He really does not want us to open it due to the pain. He tells me that he does not like doctors. Related Data Previous Rx's ?Medication ?Instructions ?Recorded aripiprazole 2 mg tablet (Abilify) 2 mg PO DAILY #30 tabs 08/04/22 tramadol 50 mg tablet 50 mg PO BID #60 tabs 08/04/22 naloxone 4 mg/actuation nasal spray 4 mg intranasal Q2M PRN opioid 08/31/24 overdose #2 ea clindamycin HCl 300 mg capsule 300 mg PO Q8H 7 days #21 caps 11/03/24 (Cleocin HCl) Allergies Allergy/AdvReac Type Severity Reaction Status Date / Time No Known Allergies Allergy Verified 08/04/22 10:01 PFSH <Sade Hernandez (ED), [employer] - Last Filed: 11/03/24 18:53> PFS Disclaimer: The information contained in this section may have been updated after the patient was seen, as this information can be updated by other users. Family History Other No significant family history Social History Smoking Status: Current every day smoker tobacco type: cigarettes packs per day: 1 alcohol intake: never substance use type: marijuana current occupational status: unemployed Travel in the last 8 weeks?: None Have you lived/traveled outside US in past 30 days?: No Contact w/someone who lives/traveled outside US past 30 days?: No Exposure to someone with infectious disease in past 14 days?: No Do you have a fever (greater than 100.4 F or 38 C)?: No Have you tested positive for COVID-19?: No Exposed to someone with COVID-19 in past 14 days?: No Do you have a sore throat?: No Do you have a cough?: No Do you have any weakness?: No Do you have any diarrhea?: No Are you experiencing any unusual bleeding?: No Do you have any muscle aches/pain?: No Do you have any abdominal pain?: No Are you experiencing loss of taste or smell?: No Other Medical History Have you received the Flu Vaccine for this season: No Have you received the Pneumonia Vaccine: No <Sade Hernandez (ED), [employer] - Last Filed: 11/03/24 18:53> ROS Obtained: Yes Systems reviewed as appropriate & no additional complaints except as documented Constitutional Constitutional: Reports as per HPI Physical Exam <Sade Deejosemanuel (ED), [employer] - Last Filed: 11/03/24 18:53> General General appearance: alert and in distress Head Head exam: atraumatic and normocephalic Eye Eye exam: Present PERRL and EOMI ENT ENT exam: Present normal oropharynx and mucous membranes moist Neck Neck exam: Present full ROM and trachea midline Respiratory Respiratory exam: Present normal lung sounds bilaterally Cardiovascular Cardiovascular exam: Present regular rate, normal rhythm, normal heart sounds, +S1 and +S2 Extremities Exam Extremities exam: Present full ROM, tenderness (Right arm abscess) and normal capillary refill Neurological Exam Neurological exam: Present alert, oriented X3 and normal gait Skin Skin exam: Present warm, dry, erythema and other (Abscess on right forearm) Medical Decision Making <Sade Luizjosemanuel (ED), [employer] - Last Filed: 11/03/24 18:53> Medical Records Screening: Per USPSTF and CDC recommendations, given the prevalence of disease in our region, it is our hospital?s policy to screen for HIV and viral Hepatitis for all patients aged 18 and over and those with ongoing risk factors. Noah Inquiry Pt receiving controlled substance: No Noah was queried for this patient: No Vital Signs: 11/03/24 12:56 11/03/24 13:48 Temperature 98.9 F 98.9 F Temperature Source Oral Oral Pulse Rate 86 Pulse Rate [Left] 87 Respiratory Rate 14 14 Blood Pressure 116/81 Blood Pressure [Right Arm] 119/73 Blood Pressure Mean [Right Arm] 88 Blood Pressure Source Automatic Cuff Blood Pressure Source [Right Arm] Automatic Cuff Blood Pressure Position Sitting Blood Pressure Position [Right Arm] Sitting 02 Sat by Pulse Oximetry 98 Oxygen Delivery Method Room Air Room Air Orders (Tests/Meds): ED MEDICATIONS Discontinued Medications Generic Name Dose Route Start Last Admin Trade Name Freq PRN Reason Stop Dose Admin Clindamycin HCl 300 mg 11/03/24 13:44 11/03/24 13:46 Clindamycin 150mg Capsule PO 11/03/24 13:45 300 mg ONCE ONE Administration Medical Decision Narrative: patient is a 54-year-old male presenting to the emergency department for evaluation of abscess on right arm. Patient is hemodynamically stable and nontoxic-appearing upon arrival, afebrile. Differential diagnosis includes abscess, spider bite, among others. I open the abscess at bedside and if produced serosanguineous fluid that had a foul odor. Patient did not tolerate well. He will be placed on clindamycin but first dose will be given here. Patient is safe for discharge home after his antibiotics are given. <Abimael Borges MD - Last Filed: 11/03/24 22:58> Vital Signs: 11/03/24 12:56 11/03/24 13:48 Temperature 98.9 F 98.9 F Temperature Source Oral Oral Pulse Rate 86 Pulse Rate [Left] 87 Respiratory Rate 14 14 Blood Pressure 116/81 Blood Pressure [Right Arm] 119/73 Blood Pressure Mean [Right Arm] 88 Blood Pressure Source Automatic Cuff Blood Pressure Source [Right Arm] Automatic Cuff Blood Pressure Position Sitting Blood Pressure Position [Right Arm] Sitting 02 Sat by Pulse Oximetry 98 Oxygen Delivery Method Room Air Room Air Orders (Tests/Meds): ED MEDICATIONS Discontinued Medications Generic Name Dose Route Start Last Admin Trade Name Freq PRN Reason Stop Dose Admin Clindamycin HCl 300 mg 11/03/24 13:44 11/03/24 13:46 Clindamycin 150mg Capsule PO 11/03/24 13:45 300 mg ONCE ONE Administration Medical Decision Narrative: patient is a 54-year-old male presenting to the emergency department for evaluation of abscess on right arm. Patient is hemodynamically stable and nontoxic-appearing upon arrival, afebrile. Differential diagnosis includes abscess, spider bite, among others. I open the abscess at bedside and if produced serosanguineous fluid that had a foul odor. Patient did not tolerate well. He will be placed on clindamycin but first dose will be given here. Patient is safe for discharge home after his antibiotics are given. I was consulted by the JAZMIN, and we discussed the complexity of the problems being addressed. I approve the treatment and management plan for this patient's care in the emergency department, thus performing a substantive portion of the medical decision making. Abimael Borges MD Procedures <Sade Hernandez (ED), [employer] - Last Filed: 11/03/24 18:53> Abscess I/D Site: upper extremity Side (if applicable): right Sedation/analgesia: none Local Anesthetic: lidocaine 2% Amount of anesthesia used (mL): 10 Technique: incised with #11 blade Amount of fluid expressed (mL): 5 Packing used?: none Critical Care <Sade Hernandez (ROBERT), [employer] - Last Filed: 11/03/24 18:53> Critical Care Time Critical Care Time: No
[2024-11-03] MEDS: CLINDAMYCIN 150MG CAPSULE 300 MG PO (13:46)
[2024-11-03 13:48] VITALS: BP 116/81; PULSE 86; RESP 14; TEMP 37.2; O2SAT 98
== END 2024-11-03 13:51 | disposition home or self-care (01) ==
PROVIDERS: Emergency Provider Student in an Organized Health Care Education/Training Program
DX: L02.413 Cutaneous abscess of right upper limb (principal); F17.210 Nicotine dependence, cigarettes, uncomplicated
CPT/HCPCS: 10060; 99283

== ENCOUNTER 2024-12-02 17:11 | Emergency (ER) | payer MEDICAID, SELFPAY ==
[2024-12-02 17:14] VITALS: BP 120/94; PULSE 99; RESP 20; TEMP 36.9; O2SAT 100; BMI 23.3
--- NOTE | 2024-12-02 17:17 | HMH.EDGENADL ---
Discharge Plan Disposition Patient Disposition: Home, Self-Care Prescriptions Prescriptions: New ondansetron 4 mg tablet,disintegrating 4 mg PO Q6H PRN (Reason: nausea and vomiting) Qty: 16 0RF No Action tramadol 50 mg tablet 50 mg PO BID Qty: 60 1RF aripiprazole [Abilify] 2 mg tablet 2 mg PO DAILY Qty: 30 1RF naloxone 4 mg/actuation spray,non-aerosol 4 mg intranasal Q2M PRN (Reason: opioid overdose) Qty: 2 2RF Rx Instructions: spray 1 dose into ONE nostril; alternate nostrils w each dose until help arrives clindamycin HCl [Cleocin HCl] 300 mg capsule 300 mg PO Q8H 7 Days Qty: 21 0RF Activity Restrictions/Add. Instructions Additional Instructions/Restrictions: You appear to be dehydrated on today's laboratory studies. I encourage you to drink plenty of fluids, including water, sugar-free Gatorade and Pedialyte over the next several days. You are being prescribed Zofran to help with nausea and vomiting. Follow-up with your primary care physician for your chronic issues. If you develop any new or worsening symptoms, or if you become concerned for your health for any reason, return to the emergency department for evaluation Clinical Impressions Clinical Impression: Nausea & vomiting, SHAHEEN (acute kidney injury) Instructions Patient Instructions: DI for Diarrhea and Traveler's Diarrhea -- Adult, DI for Diarrhea and Traveler's Diarrhea -- Child, DI for Nausea -- Adult, DI for Nausea -- Child Print Language Print Language: Prydeinig Discharge ED Provider: Abimael Borges General Adult HPI General Chief complaint: Nausea/Vomiting/Diarrhea Stated complaint: N/V Time Seen by Provider: 12/02/24 17:16 History of Present Illness HPI narrative: Erick Mace is a 54Male with a history of cervical spine fracture, tobacco use, cellulitis, opiate overdose who presents to the emergency department for complaints of abdominal pain and nausea and vomiting. Patient states that he ate gravy from a can at approximately 11:00 this morning and has had multiple episodes of vomiting since then. He was in line at [employer] and called 911 for his symptoms. He describes generalized abdominal pain. He denies any alcohol use but does report marijuana use. He does report chronic neck pain from a cervical spine fracture that he was was have surgery on but never did because he states that he is scared to and does not have a ride. Related Data Previous Rx's ?Medication ?Instructions ?Recorded aripiprazole 2 mg tablet (Abilify) 2 mg PO DAILY #30 tabs 08/04/22 tramadol 50 mg tablet 50 mg PO BID #60 tabs 08/04/22 naloxone 4 mg/actuation nasal spray 4 mg intranasal Q2M PRN opioid 08/31/24 overdose #2 ea clindamycin HCl 300 mg capsule 300 mg PO Q8H 7 days #21 caps 11/03/24 (Cleocin HCl) ondansetron 4 mg disintegrating 4 mg PO Q6H PRN nausea and 12/02/24 tablet vomiting #16 tabs Allergies Allergy/AdvReac Type Severity Reaction Status Date / Time No Known Allergies Allergy Verified 08/04/22 10:01 [facility] Disclaimer: The information contained in this section may have been updated after the patient was seen, as this information can be updated by other users. Family History Other No significant family history Social History Smoking Status: Current every day smoker tobacco type: cigarettes packs per day: 1 alcohol intake: never substance use type: marijuana current occupational status: unemployed Travel in the last 8 weeks?: None Have you lived/traveled outside [place] in past 30 days?: No Contact w/someone who lives/traveled outside US past 30 days?: No Exposure to someone with infectious disease in past 14 days?: No Do you have a fever (greater than 100.4 F or 38 C)?: No Have you tested positive for COVID-19?: No Exposed to someone with COVID-19 in past 14 days?: No Do you have a sore throat?: No Do you have a cough?: No Do you have any weakness?: No Do you have any diarrhea?: No Are you experiencing any unusual bleeding?: No Do you have any muscle aches/pain?: No Do you have any abdominal pain?: No Are you experiencing loss of taste or smell?: No Other Medical History Have you received the Flu Vaccine for this season: No Have you received the Pneumonia Vaccine: No ROS Obtained: Yes Systems reviewed as appropriate & no additional complaints except as documented Physical Exam General General appearance: alert and in no apparent distress Head Head exam: atraumatic Eye Eye exam: Present normal appearance ENT ENT exam: Present normal external ear exam Neck Neck exam: Present full ROM Chest Chest inspection: Present symmetric chest wall rise Respiratory Respiratory exam: Present normal lung sounds bilaterally; Absent respiratory distress, wheezes or stridor Cardiovascular Cardiovascular exam: Present regular rate and normal rhythm Abdominal Exam Abdominal exam: Present soft; Absent distention, tenderness, guarding, rebound or rigidity exam: Present deferred Extremities Exam Extremities exam: Present normal inspection Back Exam Back exam: Present normal inspection Neurological Exam Neurological exam: Present alert and oriented X3 Psychiatric Psychiatric exam: Present normal affect Skin Skin exam: Present warm and dry Medical Decision Making Medical Records Screening: Per USPSTF and CDC recommendations, given the prevalence of disease in our region, it is our hospital?s policy to screen for HIV and viral Hepatitis for all patients aged 18 and over and those with ongoing risk factors. Noah Inquiry Pt receiving controlled substance: No Vital Signs: 12/02/24 17:14 12/02/24 17:31 12/02/24 18:03 Temperature 98.4 F Temperature Source Oral Pulse Rate 111 H 105 H Pulse Rate [Right] 99 H Respiratory Rate 20 Blood Pressure 117/69 95/78 L Blood Pressure [Right Arm] 120/94 H Blood Pressure Mean 100 Blood Pressure Mean [Right Arm] 102 02 Sat by Pulse Oximetry 100 96 97 12/02/24 18:30 12/02/24 19:01 Temperature 97.8 F Temperature Source Pulse Rate 83 78 Pulse Rate [Right] Respiratory Rate 16 Blood Pressure 129/89 146/97 H Blood Pressure [Right Arm] Blood Pressure Mean 102 113 Blood Pressure Mean [Right Arm] 02 Sat by Pulse Oximetry 98 98 Lab Data Lab Results 12/02/24 17:30: WBC 11.0 H, RBC 5.23, Hgb 16.7, Hct 47.6, MCV 91.0, MCH 31.9 H, MCHC 35.1, RDW 11.9, Plt Count 285, MPV 8.9, Neut % (Auto) 66.9, Lymph % (Auto) 19.4, [place] % (Auto) 11.4 H, Eos % (Auto) 1.5, Baso % (Auto) 0.5, Neut # (Auto) 7.3, Lymph # (Auto) 2.1, [place] # (Auto) 1.3 H, Eos # (Auto) 0.2, Baso # (Auto) 0.1, Sodium 143, Potassium 4.4, Chloride 101, Carbon Dioxide 30, Anion Gap 16.4 H, BUN 30 H, Creatinine 1.60 H, Estimated Creat Clear 54, Estimated GFR 45 L, Est GFR ( Amer) 55 L, Glucose 117 H, Calcium 10.3 H, Total Bilirubin 0.8, AST 77 H, ALT 96 H, Alkaline Phosphatase 83, Total Protein 10.5 H D, Albumin 5.2 H, Globulin 5.3 H, Albumin/Globulin Ratio 1.0 L, Lipase 172 12/02/24 17:30 12/02/24 17:30 Orders (Tests/Meds): ED MEDICATIONS Discontinued Medications Generic Name Dose Route Start Last Admin Trade Name Freq PRN Reason Stop Dose Admin Acetaminophen 1,000 mg 12/02/24 17:22 12/02/24 18:02 Acetaminophen 500mg Tab PO 12/02/24 17:23 1,000 mg ONCE ONE Administration Lactated Ringer's 1,000 mls @ 999 mls/hr 12/02/24 17:20 12/02/24 19:18 Lactated Ringer's 1000 Ml Bag IV 12/02/24 18:20 Not Given .Q1H1M ONE Lactated Ringer's 1,000 mls @ 999 mls/hr 12/02/24 18:01 12/02/24 19:18 Lactated Ringer's 1000 Ml Bag IV 12/02/24 19:01 Not Given .Q1H1M ONE Ondansetron HCl 4 mg 12/02/24 17:22 12/02/24 18:02 Ondansetron 4mg Odt SL 12/02/24 17:23 4 mg ONCE ONE Administration ORDERS Category Date Time Status CBC w/Auto Diff [Complete Blood Count Auto Diff] Stat Lab 12/02/24 17:30 Completed CMP [Comprehensive Metabolic Panel] Stat Lab 12/02/24 17:30 Completed Lipase Stat Lab 12/02/24 17:30 Completed UA [Urinalysis and Microscopic] Stat Lab 12/02/24 17:16 Ordered Medical Decision Narrative: Erick Mace is a 54Male with a history of cervical spine fracture, tobacco use, cellulitis, opiate overdose who presents to the emergency department for complaints of abdominal pain and nausea and vomiting. Patient states that he ate gravy from a can at approximately 11:00 this morning and has had multiple episodes of vomiting since then. He was in line at [employer] and called 911 for his symptoms. He describes generalized abdominal pain. He denies any alcohol use but does report marijuana use. He does report chronic neck pain from a cervical spine fracture that he was was have surgery on but never did because he states that he is scared to and does not have a ride. On arrival, patient is borderline tachycardic with a heart rate of 99, normotensive, afebrile, oxygen saturation 100% on room air. Physical exam, stated above, revealed a nontoxic-appearing male in no distress. Cardiopulmonary exam is unremarkable. No significant abdominal tenderness or distention. He appears mildly dehydrated. Differential diagnosis includes, but is not limited to: Viral gastritis, acute pancreatitis, peptic ulcer disease, low concern for cholecystitis or choledocholithiasis given lack of tenderness on exam, dehydration, electrolyte derangement, metabolic derangement, among others. The most morbid conditions were considered and workup was based on these. Workup in the emergency department included: CBC with differential, CMP, lipase. CT abdomen pelvis with IV contrast was considered, however patient does not have any tenderness on abdominal examination and is felt that the risk of radiation exposure outweighs potential benefits at this time. Also ordered 2 L of lactated ringer, 4 mg IV Zofran and 50 mg IV Toradol. Patient stated that he does not want an IV at this time as he is scared of needles, so butterfly needle was used to obtain laboratory studies. Will give patient 4 mg ODT Zofran and 1 g of oral Tylenol. Laboratory workup shows mild leukocytosis of 11, no anemia, sodium and potassium within normal limits. Anion gap mildly elevated at 16.4. Patient does have an SHAHEEN with creatinine of 1.6 and a BUN of 30, appears prerenal in nature. Mildly elevated liver enzymes with AST of 77 and ALT of 96. Lipase within normal limits. Attempted again to discuss IV placement with the patient and he was agreeable for an attempt, however he was not able to tolerate it so no IV was placed. Patient was able to tolerate 2 16 ounce bottles of water here in the emergency department and had no recurrence of his vomiting. Given this, is felt that he is appropriate for discharge at this time. I discussed with patient the importance of hydrating over the next several days due to his dehydration on today's workup. Will send with prescription for Zofran. Patient also states that he has chronic neck pain that he never followed up with specialist or primary care doctor about. I encouraged him to follow-up with the specialist regarding his chronic pain. Return precautions were given. All questions were answered. He was then discharged from the emergency department in stable condition. Critical Care Critical Care Time Critical Care Time: No
--- OUTSIDE RECORDS SUMMARY | 2024-12-02 17:21 | XMS_ITS | Clinical Summary ---
Author Organization Healthcare Address [address] [place] [address] Care Team Providers Care Stone Trimmer Name Role Phone Dionisio Thompson MD Primary Care Provider + [phone] Social History Tobacco Use Types Packs/Day Years [...] 2021 UKY-Zoster Vaccines (1 of 2) 2021 [id number] Vaccine (3 - 2023- season) 2023 10/03/2020, [...] age to complete this topic Care Teams Stone Trimmer Relationship Specialty Start Date End Date Dionisio Thompson MD [address] [place] [address] PCP - General 08/30/20
[2024-12-02 17:31] VITALS: BP 117/69; PULSE 111; O2SAT 96
[2024-12-02 17:41] LABS: Hematocrit 47.6 % (42.0-52.0); Hemoglobin 16.7 g/dL (14.1-18.0); Immature Granulocytes % 0.3 %; Mean Corpuscular HGB Conc 35.1 g/dL (31.8-35.4); Mean Corpuscular Hemoglobin 31.9 pg (27.0-31.2); Mean Corpuscular Volume 91.0 fl (80-94); Nucleated Red Blood Cells % 0 %; Platelet Count 285 K/mm3 (142-424); Red Blood Count 5.23 M/mm3 (4.60-6.20); Red Cell Distribution Width-SD 39.5 fL; White Blood Count 11.0 K/mm3 (4.8-10.8)
[2024-12-02 17:46] LABS: Albumin Level 5.2 g/dl (3.5-5.0); Chloride 101 mmol/L (98-107); Sodium 143 mmol/L (136-145)
[2024-12-02 17:47] LABS: Potassium 4.4 mmoL/L (3.5-5.1)
[2024-12-02 17:49] LABS: Alanine Aminotransferase 96 U/L (12-78); Albumin/Globulin Ratio 1.0 (1.1-1.8); Alkaline Phosphatase 83 U/L (38-126); Anion Gap 16.4 mEq/L (5-15); Aspartate Amino Transferase 77 U/L (17-59); Bilirubin,Total 0.8 mg/dl (0.2-1.3); Blood Urea Nitrogen 30 mg/dl (9-20); Calcium 10.3 mg/dl (8.4-10.2); Carbon Dioxide 30 mmol/L (22.0-30.0); Creatinine Clearance Estimated 54 mL/min (50-200); Creatinine,Serum 1.60 mg/dl (0.66-1.25); Estimated Glomerular Filt Rate 45 ml/min (>60); GFR (African American) 55 ML/MIN (>60); Globulin 5.3 g/dL (1.3-3.2); Glucose 117 mg/dl (74-100); Lipase 172 U/L (23-300); Total Protein,Serum 10.5 g/dl (6.3-8.2)
[2024-12-02] MEDS: ONDANSETRON 4MG ODT 4 MG SL (18:02)
[2024-12-02] MEDS: ACETAMINOPHEN 500MG TAB 1000 MG PO (18:02)
[2024-12-02 18:03] VITALS: BP 95/78; PULSE 105; O2SAT 97
[2024-12-02 18:30] VITALS: BP 129/89; PULSE 83; O2SAT 98
--- NOTE | 2024-12-02 18:33 | PC.NURSE ---
i attempted to get an IV on pt but he was unable to tolerate.
[2024-12-02 19:01] VITALS: BP 146/97; PULSE 78; RESP 16; TEMP 36.6; O2SAT 98
[2024-12-02 19:27] VITALS: BP 146/97; PULSE 89; RESP 16; TEMP 37.1; O2SAT 98
== END 2024-12-02 19:28 | disposition home or self-care (01) ==
PROVIDERS: Emergency Provider Student in an Organized Health Care Education/Training Program
DX: R10.84 Generalized abdominal pain (principal); E86.0 Dehydration; R11.2 Nausea with vomiting, unspecified; N17.9 Acute kidney failure, unspecified; F17.210 Nicotine dependence, cigarettes, uncomplicated
CPT/HCPCS: 80053; 83690; 85025; 99283; Q0162

== ENCOUNTER 2024-12-11 16:15 | Emergency (ER) | payer MEDICAID, SELFPAY ==
--- NOTE | 2024-12-11 16:19 | ED_ITS ---
<Statement entered by Candy Conway DO - 12/12/24 21:18> I was consulted by the JAZMIN, and we discussed the complexity of problems being addressed. I approve the treatment and management plan for this patient's care in the emergency department, thus performing a substantial portion of the medical decision making. Candy Conway DO Discharge Plan Disposition Patient Disposition: Left Against Medical Advice Condition: Serious Prescriptions Prescriptions: No Action tramadol 50 mg tablet 50 mg PO BID Qty: 60 1RF aripiprazole [Abilify] 2 mg tablet 2 mg PO DAILY Qty: 30 1RF naloxone 4 mg/actuation spray,non-aerosol 4 mg intranasal Q2M PRN (Reason: opioid overdose) Qty: 2 2RF Rx Instructions: spray 1 dose into ONE nostril; alternate nostrils w each dose until help arrives clindamycin HCl [Cleocin HCl] 300 mg capsule 300 mg PO Q8H 7 Days Qty: 21 0RF ondansetron 4 mg tablet,disintegrating 4 mg PO Q6H PRN (Reason: nausea and vomiting) Qty: 16 0RF Referrals Follow up/Referrals: Provider,Proficienc Test [Primary Care Provider, Unknown] - See instructions Clinical Impressions Clinical Impression: Bowel obstruction, Pancreatitis Instructions Patient Instructions: DI for Acute Abdominal Pain Print Language Print Language: Slovak Discharge ED Provider: Candy Conway General Adult HPI <RANULFO Townsend - Last Filed: 12/11/24 20:56> General Chief complaint: Abdominal Pain Stated complaint: ABD Pain Time Seen by Provider: 12/11/24 16:18 History of Present Illness HPI narrative: This is a 54-year-old male with a history of cervical spine fracture, cellulitis, opioid overdose, tobacco use, SHAHEEN who presents to the emergency department via EMS for abdominal pain and vomiting. Patient reports he has had abdominal pain for the last 10 days and vomiting for the last week. Today he was vomiting behind the building of his health clinic. A nurse from the clinic checked on him who also helps provide history. She states he had been vomiting what appeared to be stomach acid and seemed to have abdominal pain. They went to check on him again and he was laying down sleeping. They aroused him. They are uncertain if he fell or had a loss of consciousness. Patient does report increased neck pain. Patient reports his abdominal pain is worse in the epigastric region. He has had normal bowel movements. No urinary frequency, blood in the urine or painful urination. No recent fever or abdominal trauma. Related Data Previous Rx's ?Medication ?Instructions ?Recorded aripiprazole 2 mg tablet (Abilify) 2 mg PO DAILY #30 t abs 08/04/22 tramadol 50 mg tablet 50 mg PO BID #60 tabs naloxone 4 mg/actuation nasal spray 4 mg intranasal Q2 M PRN opioid 08/31/24 overdose #2 ea clindamycin HCl 300 mg capsule 300 mg PO Q8H 7 days #2 1 caps 11/03/24 (Cleocin HCl) ondansetron 4 mg disintegrating 4 mg PO Q6H PRN nausea and 12/02/24 tablet vomiting #16 tabs Allergies Allergy/AdvReac Type Severity Reaction Status Date / Time gabapentin AdvReac Mild Other Verified 12/11/24 17:00 tramadol (From Ultram) AdvReac Mild Flushing Verified 12/11/24 17:00 lidocaine AdvReac Other Verified 12/11/24 17:01 [facility] <RANULFO Townsend - Last Filed: 12/11/24 20:56> [facility] Disclaimer: The information contained in this section may have been updated after the patient was seen, as this information can be updated by other users. Family History Other No significant family history Social History Smoking Status: Current every day smoker tobacco type: cigarettes packs per day: 1 alcohol intake: never substance use type: marijuana current occupational status: unemployed Travel in the last 8 weeks?: None Have you lived/traveled outside US in past 30 days?: No Contact w/someone who lives/traveled outside US past 30 days?: No Exposure to someone with infectious disease in past 14 days?: No Do you have a fever (greater than 100.4 F or 38 C)?: No Have you tested positive for COVID-19?: No Exposed to someone with COVID-19 in past 14 days?: No Do you have a sore throat?: No Do you have a cough?: No Do you have any weakness?: No Do you have any diarrhea?: No Are you experiencing any unusual bleeding?: No Do you have any muscle aches/pain?: No Do you have any abdominal pain?: No Are you experiencing loss of taste or smell?: No Other Medical History Have you received the Flu Vaccine for this season: No Have you received the Pneumonia Vaccine: No <RANULFO Townsend - Last Filed: 12/11/24 20:56> ROS Obtained: Yes Systems reviewed as appropriate & no additional complaints except as documented Physical Exam <RANULFO Townsend - Last Filed: 12/11/24 20:56> General General appearance: alert and in no apparent distress Head Head exam: atraumatic and normocephalic Neck Neck exam: Present full ROM Respiratory Respiratory exam: Present normal lung sounds bilaterally; Absent respiratory distress Cardiovascular Cardiovascular exam: Present regular rate and normal rhythm Abdominal Exam Abdominal exam: Present soft and tenderness; Absent distention, guarding or rebound Abdominal tenderness: Present RUQ and epigastrium Neurological Exam Neurological exam: Present alert and oriented X3 Medical Decision Making <RANULFO Townsend - Last Filed: 12/11/24 20:56> Medical Records Screening: Per USPSTF and CDC recommendations, given the prevalence of disease in our region, it is our hospital?s policy to screen for HIV and viral Hepatitis for all patients aged 18 and over and those with ongoing risk factors. Noah Inquiry Pt receiving controlled substance: No Vital Signs: 12/11/24 16:20 12/11/24 16:31 12/11/24 17:30 Temperature 98 F Temperature Source Oral Pulse Rate 84 68 Pulse Rate [Left] 86 Respiratory Rate 19 19 Blood Pressure 110/60 116/80 Blood Pressure [Right Arm] 117/91 H Blood Pressure Mean 76 92 Blood Pressure Mean [Right Arm] 99 Blood Pressure Source [Right Arm] Automatic Cuff 02 Sat by Pulse Oximetry 98 94 L 94 L Oxygen Delivery Method Room Air Room Air 12/11/24 18:42 Temperature 98.7 F Temperature Source Pulse Rate 89 Pulse Rate [Left] Respiratory Rate 19 Blood Pressure 122/78 Blood Pressure [Right Arm] Blood Pressure Mean Blood Pressure Mean [Right Arm] Blood Pressure Source [Right Arm] 02 Sat by Pulse Oximetry Oxygen Delivery Method Room Air Lab Data Lab Results 12/11/24 16:51: WBC 7.2, RBC 4.61, Hgb 14.4, Hct 41.1 L, MCV 89.2, MCH 31.2, MCHC 35.0, RDW 11.6, Plt Count 292, MPV 9.1, Neut % (Auto) 46.0, Lymph % (Auto) 40.4, [place] % (Auto) 9.0, Eos % (Auto) 3.7, Baso % (Auto) 0.8, Neut # (Auto) 3.3, Lymph # (Auto) 2.9, [place] # (Auto) 0.7, Eos # (Auto) 0.3, Baso # (Auto) 0.1, D- Dimer 0.76 H, Sodium 139, Potassium 4.4, Chloride 102, Carbon Dioxide 29, Anion Gap 12.4, BUN 22 H, Creatinine 0.90, Estimated Creat Clear 90, Estimated GFR 88, Est GFR ( Amer) 107, Glucose 114 H, Calcium 9.6, Total Bilirubin 0.6, AST 54, ALT 65, Alkaline Phosphatase 64, Troponin I 0.02, Total Protein 8.3 H, Albumin 4.5, Globulin 3.8 H, Albumin/Globulin Ratio 1.2, Lipase 1322 H 12/11/24 16:51 12/11/24 16:51 Orders (Tests/Meds): ED MEDICATIONS Discontinued Medications Generic Name Dose Route Start Last Admin Trade Name Freq PRN Reason Stop Dose Admin Iopamidol 75 ml 12/11/24 17:09 12/11/24 17:13 Iopamidol-370 (76%);100ml Bottle IV 12/11/24 17:10 75 ml ONCE ONE Administration Ondansetron HCl 4 mg 12/11/24 17:21 12/11/24 17:28 Ondansetron 4mg/2ml Vial IV 12/11/24 17:22 4 mg ONCE ONE Administration Sodium Chloride 1,000 ml 12/11/24 17:06 12/11/24 17:22 Sodium Chloride 0.9% 500ml Bag IV 12/11/24 17:07 1,000 ml ONCE ONE Administration Sodium Chloride 10 ml 12/11/24 17:09 12/11/24 17:13 Sodium Chloride 0.9% 10ml Syr (Rad Only) IV 01/10/25 17:08 10 ml NEEDED PRN Administration Maintain IV Site ORDERS Category Date Time Status CT abdomen pelvis w con Stat Cat Scan 12/11/24 16:[address] cervical spine wo con Stat Cat Scan 12/11/24 16:[address] head/brain wo con Stat Cat Scan 12/11/24 16:47 Completed Consult Staple Fiber Washer [CONS] Routine Cons 12/11/24 17:32 Active POCUS Point of Care (ER Only) Stat Exams 12/11/24 16:39 Taken CBC w/Auto Diff [Complete Blood Count Auto Diff] Stat Lab 12/11/24 16:51 Completed CMP [Comprehensive Metabolic Panel] Stat Lab 12/11/24 16:51 Completed D-Dimer Stat Lab 12/11/24 16:51 Completed Lipase Stat Lab 12/11/24 16:51 Completed Trop I [Troponin I] Stat Lab 12/11/24 16:51 Completed EKG Request [ECG Request] Stat Y 12/11/24 17:06 Ordered Medical Decision Narrative: In summary, this is a 54-year-old male with a history of cellulitis, SHAHEEN, drug overdose, tobacco use, who presents to the emergency department via EMS for evaluation of abdominal pain and vomiting. Patient reports a week of the symptoms. A nurse from the patient's health clinic provided additional history noting the patient does not typically have pain like he is experiencing today. They witnessed episodes of nonbloody, nonbilious emesis. She adds that they are uncertain of the patient had a syncopal event or loss of consciousness but when they found him outside he appeared to be asleep and had to be aroused. Patient denies any drug or alcohol use today but admits to weekly cocaine use. On exam, patient is well-appearing and in no acute distress. GCS 15. Abdomen is soft and nondistended. There is tenderness to palpation in the epigastric and right upper quadrant. There is no guarding. Normal respiratory rate and effort. Lungs are clear to auscultation bilaterally without adventitious sounds. Neurologic exam is normal and there are no deficits. Differential diagnoses include but are not limited to gastritis, gastroenteritis, dehydration, electrolyte derangement, SHAHEEN, cholecystitis, cholelithiasis, pancreatitis, syncopal event, arrhythmia, drug overdose, intracranial process, cervical fracture, cervical strain, among others. Will obtain laboratory workup including CBC, CMP, lipase, D-dimer, EKG, CT abdomen and pelvis, CT cervical spine, CT head. Labs reviewed. CBC nonactionable. H&H stable. No leukocytosis. CMP with no electrolyte derangement. Creatinine 0.90, improved from 1.60 9 days ago. Lipase elevated at 1322. Bedside ultrasound performed by Dr. Conway. No gallstones. CT shows bowel obstruction affecting the SMA. I spoke with our general surgery team who confirms patient will need vascular surgery which is not available at this facility. I discussed diagnosis and treatment options with the patient. He is refusing all intervention including transfer to for higher level of care. He refuses and additional treatment in the ED, our facility, and outside facility. Despite multiple conversations with the patient regarding the severity of his condition, he continues to refuse treatment, admission, and transfer at this time. We discussed that his bowel obstruction is obstructing the SMA which will continue to limit blood flow to the bowel. He understands this can cause significant morbidity and mortality. He voices understanding and continues to insist on leaving against medical advice. <Candy Conway, DO - Last Filed: 12/12/24 21:18> Vital Signs: 12/11/24 16:20 12/11/24 16:31 12/11/24 17:30 Temperature 98 F Temperature Source Oral Pulse Rate 84 68 Pulse Rate [Left] 86 Respiratory Rate 19 19 Blood Pressure 110/60 116/80 Blood Pressure [Right Arm] 117/91 H Blood Pressure Mean 76 92 Blood Pressure Mean [Right Arm] 99 Blood Pressure Source [Right Arm] Automatic Cuff 02 Sat by Pulse Oximetry 98 94 L 94 L Oxygen Delivery Method Room Air Room Air 12/11/24 18:42 Temperature 98.7 F Temperature Source Pulse Rate 89 Pulse Rate [Left] Respiratory Rate 19 Blood Pressure 122/78 Blood Pressure [Right Arm] Blood Pressure Mean Blood Pressure Mean [Right Arm] Blood Pressure Source [Right Arm] 02 Sat by Pulse Oximetry Oxygen Delivery Method Room Air Lab Data Lab Results 12/11/24 16:51: WBC 7.2, RBC 4.61, Hgb 14.4, Hct 41.1 L, MCV 89.2, MCH 31.2, MCHC 35.0, RDW 11.6, Plt Count 292, MPV 9.1, Neut % (Auto) 46.0, Lymph % (Auto) 40.4, [place] % (Auto) 9.0, Eos % (Auto) 3.7, Baso % (Auto) 0.8, Neut # (Auto) 3.3, Lymph # (Auto) 2.9, [place] # (Auto) 0.7, Eos # (Auto) 0.3, Baso # (Auto) 0.1, D- Dimer 0.76 H, Sodium 139, Potassium 4.4, Chloride 102, Carbon Dioxide 29, Anion Gap 12.4, BUN 22 H, Creatinine 0.90, Estimated Creat Clear 90, Estimated GFR 88, Est GFR ( Amer) 107, Glucose 114 H, Calcium 9.6, Total Bilirubin 0.6, AST 54, ALT 65, Alkaline Phosphatase 64, Troponin I 0.02, Total Protein 8.3 H, Albumin 4.5, Globulin 3.8 H, Albumin/Globulin Ratio 1.2, Lipase 1322 H Orders (Tests/Meds): ED MEDICATIONS Discontinued Medications Generic Name Dose Route Start Last Admin Trade Name Freq PRN Reason Stop Dose Admin Iopamidol 75 ml 12/11/24 17:09 12/11/24 17:13 Iopamidol-370 (76%);100ml Bottle IV 12/11/24 17:10 75 ml ONCE ONE Administration Ondansetron HCl 4 mg 12/11/24 17:21 12/11/24 17:28 Ondansetron 4mg/2ml Vial IV 12/11/24 17:22 4 mg ONCE ONE Administration Sodium Chloride 1,000 ml 12/11/24 17:06 12/11/24 17:22 Sodium Chloride 0.9% 500ml Bag IV 12/11/24 17:07 1,000 ml ONCE ONE Administration Sodium Chloride 10 ml 12/11/24 17:09 12/11/24 17:13 Sodium Chloride 0.9% 10ml Syr (Rad Only) IV 01/10/25 17:08 10 ml NEEDED PRN Administration Maintain IV Site ORDERS Category Date Time Status CT abdomen pelvis w con Stat Cat Scan 12/11/24 16:[address] cervical spine wo con Stat Cat Scan 12/11/24 16:[address] head/brain wo con Stat Cat Scan 12/11/24 16:47 Completed Consult Staple Fiber Washer [CONS] Routine Cons 12/11/24 17:32 Active POCUS Point of Care (ER Only) Stat Exams 12/11/24 16:39 Taken CBC w/Auto Diff [Complete Blood Count Auto Diff] Stat Lab 12/11/24 16:51 Completed CMP [Comprehensive Metabolic Panel] Stat Lab 12/11/24 16:51 Completed D-Dimer Stat Lab 12/11/24 16:51 Completed Lipase Stat Lab 12/11/24 16:51 Completed Trop I [Troponin I] Stat Lab 12/11/24 16:51 Completed EKG Request [ECG Request] Stat Y 12/11/24 17:06 Ordered Medical Decision Narrative: In summary, this is a 54-year-old male with a history of cellulitis, SHAHEEN, drug overdose, tobacco use, who presents to the emergency department via EMS for evaluation of abdominal pain and vomiting. Patient reports a week of the symptoms. A nurse from the patient's health clinic provided additional history noting the patient does not typically have pain like he is experiencing today. They witnessed episodes of nonbloody, nonbilious emesis. She adds that they are uncertain of the patient had a syncopal event or loss of consciousness but when they found him outside he appeared to be asleep and had to be aroused. Patient denies any drug or alcohol use today but admits to weekly cocaine use. On exam, patient is well-appearing and in no acute distress. GCS 15. Abdomen is soft and nondistended. There is tenderness to palpation in the epigastric and right upper quadrant. There is no guarding. Normal respiratory rate and effort. Lungs are clear to auscultation bilaterally without adventitious sounds. Neurologic exam is normal and there are no deficits. Differential diagnoses include but are not limited to gastritis, gastroenteritis, dehydration, electrolyte derangement, SHAHEEN, cholecystitis, cholelithiasis, pancreatitis, syncopal event, arrhythmia, drug overdose, intracranial process, cervical fracture, cervical strain, among others. Will obtain laboratory workup including CBC, CMP, lipase, D-dimer, EKG, CT abdomen and pelvis, CT cervical spine, CT head. Labs reviewed. CBC nonactionable. H&H stable. No leukocytosis. CMP with no electrolyte derangement. Creatinine 0.90, improved from 1.60 9 days ago. Lipase elevated at 1322. Bedside ultrasound performed by Dr. Conway. No gallstones. CT shows bowel obstruction affecting the SMA. I spoke with our general surgery team who confirms patient will need vascular surgery which is not available at this facility. I discussed diagnosis and treatment options with the patient. He is refusing all intervention including transfer to for higher level of care. He refuses and additional treatment in the ED, our facility, and outside facility. Despite multiple conversations with the patient regarding the severity of his condition, he continues to refuse treatment, admission, and transfer at this time. We discussed that his bowel obstruction is obstructing the SMA which will continue to limit blood flow to the bowel. He understands this can cause significant morbidity and mortality. He voices understanding and continues to insist on leaving against medical advice. Candy Conway DO I initiated only had multiple conversations with the patient regarding the concern for his medical diagnoses found here in the emergency department including his pancreatitis as well as his bowel obstruction. I discussed that without treatment patient could have severe worsening symptoms and could lead to bowel ischemia. Patient understood and still wished to not be admitted to our hospital to be transferred to another hospital and patient wished to discharge at this time therefore patient was signed out AMA. Procedures <Candy Conway DO - Last Filed: 12/12/24 21:18> Limited Ultrasound Indication:: Abdominal pain, elevated lipase Views:: RUQ Findings:: No gallstones, no GB wall thickening, no sludge Interpretation:: Unremarkable gallbladder Disclaimer: Imaging was saved into the apartment archive. Images were technically adequate. No further imaging was indicated. Critical Care <RANULFO Townsend - Last Filed: 12/11/24 20:56> Critical Care Time Critical Care Time: No
[2024-12-11 16:20] VITALS: BP 117/91; PULSE 86; RESP 19; TEMP 36.6; O2SAT 98; BMI 21.8
--- OUTSIDE RECORDS SUMMARY | 2024-12-11 16:22 | XMS_ITS | Clinical Summary ---
Author Organization Healthcare Address [address] [place] [address] Care Team Providers Care Viticulturist Name Role Phone Dionisio Thompson MD Primary Care Provider + [phone] Social History Tobacco Use Types Packs/Day Years [...] 2021 UKY-Zoster Vaccines (1 of 2) 2021 [id number] Vaccine (3 - 2023- season) 2023 10/03/2020, [...] age to complete this topic Care Teams Viticulturist Relationship Specialty Start Date End Date Dionisio Thompson MD [address] [place] [address] PCP - General 08/30/20
[2024-12-11 16:31] VITALS: BP 110/60; PULSE 84; RESP 19; O2SAT 94
--- NOTE | 2024-12-11 16:40 | CT_ITS ---
PROCEDURE INFORMATION: Exam: CT Abdomen And Pelvis With Contrast Exam date and time: 12/11/2024 5:09 PM Age: 54 years old Clinical indication: Other: Epigastric, ruq pain, vomiting x 7 days TECHNIQUE: Imaging protocol: Computed tomography of the abdomen and pelvis with contrast. Radiation optimization: All CT scans at this facility use at least one of these dose optimization techniques: automated exposure control; mA and/or kV adjustment per patient size (includes targeted exams where dose is matched to clinical indication); or iterative reconstruction. Contrast material: ISOVUE; Contrast volume: 75 ml; Contrast route: IV; COMPARISON: CR XR CHEST PORTABLE 08/31/2024 12:37 PM FINDINGS: Tubes, catheters and devices: None noted. Lungs: Lung bases appear clear. Heart: No significant coronary calcifications. No cardiomegaly. No significant pericardial effusion. Liver: Normal. No mass. Gallbladder and biliary ducts: Normal. No calcified stones. No ductal dilation. Pancreas: Normal. No ductal dilation. Spleen: Normal. No splenomegaly. Adrenal glands: Normal. No mass. Kidneys and ureters: Normal. No hydronephrosis. 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 Prominent gastric and proximal duodenal dilation. No mucosal thickening. Appendix: No evidence of appendicitis. Intraperitoneal space: Unremarkable. No free air. No significant fluid collection. Retroperitoneal space: No significant retroperitoneal inflammatory changes are noted. Vasculature: Unremarkable. No abdominal aortic aneurysm. Lymph nodes: Unremarkable. No enlarged lymph nodes. Urinary bladder: Unremarkable as visualized. Reproductive: Unremarkable as visualized. Bones/joints: Compression fracture T12 and L1 appear old. No acute fracture. Soft tissues: Unremarkable. IMPRESSION: 1. Bowel obstruction related to the SMA. 2. Compression fracture T12 and L1 appear old.
--- NOTE | 2024-12-11 16:47 | CT_ITS ---
PROCEDURE INFORMATION: Exam: CT Cervical Spine Without Contrast Exam date and time: 12/11/2024 5:07 PM Age: 54 years old Clinical indication: Injury or trauma; Fall; Blunt trauma; Additional info: Fall, neck pain; Previous c spine fracture TECHNIQUE: Imaging protocol: Computed tomography of the cervical spine without contrast. Radiation optimization: All CT scans at this facility use at least one of these dose optimization techniques: automated exposure control; mA and/or kV adjustment per patient size (includes targeted exams where dose is matched to clinical indication); or iterative reconstruction. 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 4 mm of anterolisthesis of C1 with respect to C2, unchanged. No acute fracture. Lungs: Partially visualized prominent paraseptal emphysema Soft tissues: Unremarkable. IMPRESSION: 1. No evidence for acute fracture. 2. 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 4 mm of anterolisthesis of C1 with respect to C2, unchanged. 3. Partially visualized prominent paraseptal emphysema
--- NOTE | 2024-12-11 16:47 | CT_ITS ---
PROCEDURE INFORMATION: Exam: CT Head Without Contrast Exam date and time: 12/11/2024 5:03 PM Age: 54 years old Clinical indication: Injury or trauma; Fall; Blunt trauma (contusions or hematomas); Additional info: Fall, headstrike TECHNIQUE: Imaging protocol: Computed tomography of the head without contrast. Radiation optimization: All CT scans at this facility use at least one of these dose optimization techniques: automated exposure control; mA and/or kV adjustment per patient size (includes targeted exams where dose is matched to clinical indication); or iterative reconstruction. COMPARISON: CT HEAD/BRAIN WO CON 07/04/2024 5:26 PM FINDINGS: Brain: Normal. No hemorrhage. Unremarkable white matter. No mass effect. Cerebral ventricles: No ventriculomegaly. Paranasal sinuses: Visualized sinuses are unremarkable. No fluid levels. Mastoid air cells: Visualized mastoid air cells are well aerated. Bones: Unremarkable. No acute fracture. Soft tissues: Unremarkable. IMPRESSION: No acute intracranial abnormality.
[2024-12-11 17:08] LABS: Hematocrit 41.1 % (42.0-52.0); Hemoglobin 14.4 g/dL (14.1-18.0); Immature Granulocytes % 0.1 %; Mean Corpuscular HGB Conc 35.0 g/dL (31.8-35.4); Mean Corpuscular Hemoglobin 31.2 pg (27.0-31.2); Mean Corpuscular Volume 89.2 fl (80-94); Nucleated Red Blood Cells % 0 %; Platelet Count 292 K/mm3 (142-424); Red Blood Count 4.61 M/mm3 (4.60-6.20); Red Cell Distribution Width-SD 37.2 fL; White Blood Count 7.2 K/mm3 (4.8-10.8)
[2024-12-11] MEDS: SODIUM CHLORIDE 0.9% 10ML SYR (RAD ONLY) 10 ML IV (17:13)
[2024-12-11] MEDS: IOPAMIDOL-370 (76%);100ML BOTTLE 75 ML IV (17:13)
[2024-12-11 17:14] LABS: Alanine Aminotransferase 65 U/L (12-78); Albumin Level 4.5 g/dl (3.5-5.0); Albumin/Globulin Ratio 1.2 (1.1-1.8); Alkaline Phosphatase 64 U/L (38-126); Anion Gap 12.4 mEq/L (5-15); Aspartate Amino Transferase 54 U/L (17-59); Bilirubin,Total 0.6 mg/dl (0.2-1.3); Blood Urea Nitrogen 22 mg/dl (9-20); Calcium 9.6 mg/dl (8.4-10.2); Carbon Dioxide 29 mmol/L (22.0-30.0); Chloride 102 mmol/L (98-107); Creatinine Clearance Estimated 90 mL/min (50-200); Creatinine,Serum 0.90 mg/dl (0.66-1.25); Estimated Glomerular Filt Rate 88 ml/min (>60); GFR (African American) 107 ML/MIN (>60); Globulin 3.8 g/dL (1.3-3.2); Glucose 114 mg/dl (74-100); Potassium 4.4 mmoL/L (3.5-5.1); Sodium 139 mmol/L (136-145); Total Protein,Serum 8.3 g/dl (6.3-8.2)
[2024-12-11 17:16] LABS: Lipase 1322 U/L (23-300)
[2024-12-11 17:19] LABS: D-Dimer 0.76 ug/mL (0.0-0.5)
[2024-12-11] MEDS: SODIUM CHLORIDE 0.9% 500ML BAG 1000 ML IV (17:22)
[2024-12-11 17:25] LABS: Troponin I 0.02 ng/ml (0.00-0.034)
[2024-12-11] MEDS: ONDANSETRON 4MG/2ML VIAL 4 MG IV (17:28)
[2024-12-11 17:30] VITALS: BP 116/80; PULSE 68; O2SAT 94
--- NOTE | 2024-12-11 17:30 | ECG_ITS ---
APPROVED REPORT Exam: Resting ECG HR:66 bpm ECG Measurements Heart Rate 66 AXES [place] 150 P 53 QRSd 94 QRS 80 QT 374 T 80 QTc 387 Conclusion SINUS RHYTHM VOLTAGE CRITERIA FOR LVH [MEETS CRITERIA IN ONE OF: R(aVL), S(V1), R(V5), R(V5/V6)+S(V1)] NONSPECIFIC T-WAVE ABNORMALITY ABNORMAL ECG UNCONFIRMED REPORT Electronically signed by : ARPITA WINSLOW, 12/11/2024 23:18:13
--- NOTE | 2024-12-11 17:57 | PC.NURSE ---
paged dr. patten for pt.
--- NOTE | 2024-12-11 18:02 | PC.NURSE ---
General surgery declined the pt. Per Jahaira we will contact [facility] about transfer.
--- NOTE | 2024-12-11 18:05 | PC.NURSE ---
Called [facility] per RANULFO Walls for a bowel obstruction affecting the SMA. Images were powershared and [facility] would call us back
--- NOTE | 2024-12-11 18:16 | PEERSUPPORT ---
Peer Support Note Patient Information Patient Information: DOS: 12/11/2024 Pt says his pain is not tolerable, he is enrolled in [facility] for MAT. Attending [facility] for services as well. Pt stated he is not suicidal and has no plan to hurt himself but has thoughts of not living to not feel the pain he lives with. He denies using fentanyl recently and says he never had a drug problem until he almost and had to start taking pain medication that led to street drugs to manage pain. Ps listens to validate feelings, offering comfort and support.
--- NOTE | 2024-12-11 18:21 | PC.NURSE ---
Called [facility] back and advised them that the pt refused to go.
--- NOTE | 2024-12-11 18:29 | PC.NURSE ---
Patient insistent on signing out AMA, patient educated at length on risk of leaving without further treatment. Patient verbalizes understanding and states he still wishes to leave. DR. Conway and Denis Walls aware. AMA form complete.
[2024-12-11 18:42] VITALS: BP 122/78; PULSE 89; RESP 19; TEMP 37.1; O2SAT 98
== END 2024-12-11 18:43 | disposition left against medical advice (07) ==
PROVIDERS: Physician Assistant; Emergency Provider Student in an Organized Health Care Education/Training Program
DX: K85.90 Acute pancreatitis without necrosis or infection, unspecified (principal); K56.609 Unspecified intestinal obstruction, unspecified as to partial versus complete obstruction; F11.10 Opioid abuse, uncomplicated
CPT/HCPCS: 70450; 72125; 74177; 80053; 83690; 84484; 85025; 85378; 93005; 96374; 99284; 99285; J2405; J7040; Q9967